=== PATIENT | female | born 1945 | race African-American/Black ===

== ENCOUNTER 2017-02-05 10:08 | Day surgery (SDC) | payer MEDICARE, BC ==
[~2017-02-05] VITALS: Ht 160 cm; Wt 91.6 kg
[~2017-02-05 10:08] MED LIST: ADVIL200 MG PO; ALEVE220 MG PO; AMITRIPTYLIN50 MG PO; AUGMENTIN875TAB OR; AVELOX400 MG PO; CARDIZEM CD240 MG OR; CENTRUM OR; CEPHALEXIN500 MG PO; CIPRO XR500 MG PO; CIPRO500 MG OR; CIPRO500 MG PO; CIPROFLOXACN500 MG PO; COZAAR100 MG PO; DARVOCET-N 100100 MG OR; DIFLUCAN150 MG OR; DILAUDID 2MG2 MG/TA1 OR; DILAUDID 2MG2 MG/TAB OR; ELAVIL; ELAVIL25 MG PO; ESCITALOPRAM OX10 MG PO; GABITRIL2 MG OR; GARLIQUE400 MG PO; KEFLEX500 M1 PO; LOSARTAN/HCT1 TA2 PO; LYRICA75 MG OR; MACROBID100 MG OR; MACRODANTIN100 MG PO; MELOXICAM15 MG PO; MELOXICAM7.5 MG PO; METRONIDAZOL500 MG PO; MOTRIN800 MG PO; NASONEX50 MCG/AC NAB; NEURONTIN300 MG PO; NEXIUM20 M1 OR; NEXIUM40 MG PO; NITROFURANTN100 M2 OR; NITROFURANTOIN100 MG PO; NORVASC2.5 MG PO; NYSTATIN TOP; NYSTATIN100000 M3 TOP; OMEGA 31000 MG PO; OMNICEF300 MG OR; OXYCODONE HCL5 MG PO; PERCOCET 5/325M1 TAB PO; POTASSIUM CHLO20 ME1 PO; PRILOSEC20 MG/CAP PO; PYRIDIUM200 MG PO; ULTRAM50 MG PO; VANTIN200 M1 PO; VERAPAMIL180 M2 PO; ZOFRAN ODT4 MG OR; ZYLOPRIM300 MG PO; ZYVOX600 MG PO
[2017-02-05] MEDS ORDERED: ELAVIL50 MG PO (10:54)
[2017-02-05 13:45] VITALS: BP 146/66
== END 2017-02-05 13:42 | disposition home or self-care (01) ==
LOC: ORM 10:08
PROVIDERS: ATTEND Urology
PROC: 0TP98DZ Removal of Intraluminal Device from Ureter, Via Natural or Artificial Opening Endoscopic (ICD-10-PCS; principal; 2017-02-05)
DX: Z46.6 Encounter for fitting and adjustment of urinary device (principal); I10 Essential (primary) hypertension; Z87.442 Personal history of urinary calculi

== ENCOUNTER 2017-03-02 23:27 | Inpatient (IN) | payer MEDICARE, BC ==
[~2017-03-02] VITALS: Ht 160 cm; Wt 99.5 kg
[~2017-03-02 23:27] MED LIST changes: +ELAVIL50 MG PO
[2017-03-03] MEDS ORDERED: UNK BP MED (00:30)
[2017-03-03 04:04] LABS: ALBUMIN 3.8 g/dL (3.2-5.0); ALKALINE PHOSPHATASE 89 u/l (38-126); ANION GAP 15 (6-22 (CALC)); BILIRUBIN, TOTAL 0.7 mg/dL (0.0-1.4); BUN 12 mg/dL (8-23); BUN/CREATININE RATIO 14 (12-20 (CALC)); CALCIUM 10.5 mg/dL (8.4-10.2); CARBON DIOXIDE 24 mmol/l (22-30); CHLORIDE 104 mmol/l (95-108); CREATININE 0.9 mg/dL (0.5-1.0); GFR > 60 ML/MIN (>=60 (CALC)); GFR FOR AFR.AMER. > 60 ML/MIN (>=60 (CALC)); GLUCOSE 131 mg/dL (82-115); POTASSIUM 4.4 mmol/l (3.5-5.1); SGOT/AST 16 u/l (9-36); SGPT/ALT 24 u/l (11-66); SODIUM 139 mmol/l (137-146); TOTAL PROTEIN 7.2 g/dL (6.3-8.2)
[2017-03-03 04:09] LABS: HEMATOCRIT 40.3 % (37.0-47.0); HEMOGLOBIN 12.9 g/dl (12.0-16.0); IMMATURE GRANULOCYTES 0.4 % (0.0-1.0); MEAN CELL VOLUME 85.6 fL CALC (80.0-100.0); MEAN CORPUSCULAR HGB 27.4 pG CALC (26.0-32.0); NEUT# 13.39 thou/uL (2.00-7.15); RED BLOOD COUNT 4.71 mill/uL (4.20-5.60); RED CELL DISTRI WIDTH 17.3 % (11.5-15.5)
[2017-03-03 08:11] LABS: URINE BILIRUBIN - DIPSTICK NEGATIVE (NEGATIVE); URINE BLOOD DIPSTICK MODERATE (NEGATIVE); URINE CLARITY TURBID; URINE COLOR YELLOW; URINE GLUCOSE - DIPSTICK NEGATIVE (NEGATIVE); URINE KETONE NEGATIVE (NEGATIVE); URINE LEUK ESTERASE LARGE (Negative); URINE NITRITE - DIPSTICK NEGATIVE (Negative); URINE PROTEIN - DIPSTICK NEGATIVE (NEG-TRACE); URINE UROBILINOGEN - DIPSTICK 0.2 E.U./dL (0.2)
[2017-03-03 08:20] LABS: URINE BACTERIA MODERATE hpf; URINE SQUAMOUS EPITHELIAL CELL FEW EPI/hpf (0-FEW); URINE WBC >100 WBC/hpf (0-5)
[2017-03-03 11:15] VITALS: BP 143/84
[2017-03-03 16:00] VITALS: BP 180/80
[2017-03-03 17:28] VITALS: BP 198/90
[2017-03-03 19:05] VITALS: BP 133/72
[2017-03-03 19:50] VITALS: BP 139/70
[2017-03-04] VITALS (13 sets, daily range): BP systolic 104–168; BP diastolic 36–82
[2017-03-04 04:28] LABS: HEMATOCRIT 34.9 % (37.0-47.0); HEMOGLOBIN 11.2 g/dl (12.0-16.0); IMMATURE GRANULOCYTES 0.6 % (0.0-1.0); MEAN CELL VOLUME 85.5 fL CALC (80.0-100.0); MEAN CORPUSCULAR HGB 27.5 pG CALC (26.0-32.0); MEAN CORPUSCULAR HGB CONC 32.1 g/L CALC (32.0-36.0); NEUT# 7.11 thou/uL (2.00-7.15); RED BLOOD COUNT 4.08 mill/uL (4.20-5.60); RED CELL DISTRI WIDTH 17.4 % (11.5-15.5)
[2017-03-04 04:43] LABS: ANION GAP 13 (6-22 (CALC)); BUN 15 mg/dL (8-23); BUN/CREATININE RATIO 15 (12-20 (CALC)); CARBON DIOXIDE 26 mmol/l (22-30); CHLORIDE 107 mmol/l (95-108); GFR 55 ML/MIN (>=60 (CALC)); GFR FOR AFR.AMER. > 60 ML/MIN (>=60 (CALC)); GLUCOSE 113 mg/dL (82-115); POTASSIUM 4.2 mmol/l (3.5-5.1); SODIUM 141 mmol/l (137-146)
[2017-03-05 04:25] VITALS: BP 135/75
[2017-03-05 06:01] LABS: HEMATOCRIT 35.9 % (37.0-47.0); HEMOGLOBIN 11.2 g/dl (12.0-16.0); IMMATURE GRANULOCYTES 0.5 % (0.0-1.0); MEAN CELL VOLUME 86.7 fL CALC (80.0-100.0); MEAN CORPUSCULAR HGB 27.1 pG CALC (26.0-32.0); MEAN CORPUSCULAR HGB CONC 31.2 g/L CALC (32.0-36.0); NEUT# 4.99 thou/uL (2.00-7.15); RED BLOOD COUNT 4.14 mill/uL (4.20-5.60); RED CELL DISTRI WIDTH 17.5 % (11.5-15.5)
[2017-03-05 06:21] LABS: ANION GAP 13 (6-22 (CALC)); BUN 12 mg/dL (8-23); BUN/CREATININE RATIO 14 (12-20 (CALC)); CALCIUM 9.8 mg/dL (8.4-10.2); CARBON DIOXIDE 24 mmol/l (22-30); CHLORIDE 109 mmol/l (95-108); CREATININE 0.9 mg/dL (0.5-1.0); GFR > 60 ML/MIN (>=60 (CALC)); GFR FOR AFR.AMER. > 60 ML/MIN (>=60 (CALC)); GLUCOSE 88 mg/dL (82-115); SODIUM 142 mmol/l (137-146)
[2017-03-05 08:03] VITALS: BP 127/83
[2017-03-05 10:57] VITALS: BP 119/70
[2017-03-05] MEDS ORDERED: ZYVOX600 MG PO (12:12)
[2017-03-05] MEDS ORDERED: TAMSULOSIN HCL0.4 MG PO (12:12)
[2017-03-05] MEDS ORDERED: PYRIDIUM200 MG PO (12:13)
== END 2017-03-05 13:24 | disposition home or self-care (01) | DRG 872 ==
LOC: ENPENDDIS → ED 23:27 → ED-I 23:59 → ED 23:59 → ED-I 03-03 06:10 → ED 03-03 10:00 → MS2 03-03 10:01
PROVIDERS: Emergency Medicine; ADMIT Internal Medicine; ATTEND Internal Medicine
PROC: 0T788DZ Dilation of Bilateral Ureters with Intraluminal Device, Via Natural or Artificial Opening Endoscopic (ICD-10-PCS; principal; 2017-03-04)
PROC: BT141ZZ Fluoroscopy of Kidneys, Ureters and Bladder using Low Osmolar Contrast (ICD-10-PCS; 2017-03-04)
DX: A41.9 Sepsis, unspecified organism (principal); N82.4 Other female intestinal-genital tract fistulae; I10 Essential (primary) hypertension; N13.6 Pyonephrosis; G47.33 Obstructive sleep apnea (adult) (pediatric); M19.90 Unspecified osteoarthritis, unspecified site; F32.9 Major depressive disorder, single episode, unspecified; N20.0 Calculus of kidney; B95.2 Enterococcus as the cause of diseases classified elsewhere; K21.9 Gastro-esophageal reflux disease without esophagitis; E66.9 Obesity, unspecified; R73.03 Prediabetes; Z68.35 Body mass index [BMI] 35.0-35.9, adult; Z16.21 Resistance to vancomycin; Z90.49 Acquired absence of other specified parts of digestive tract; Z87.442 Personal history of urinary calculi; Z87.440 Personal history of urinary (tract) infections; E83.52 Hypercalcemia; E21.0 Primary hyperparathyroidism
CPT/HCPCS: J0692; J1956; J2020; Q9967

== ENCOUNTER 2017-04-01 11:17 | Inpatient (IN) | payer MEDICARE, BC ==
[2017-04-01] VITALS (7 sets, daily range): BP systolic 132–158; BP diastolic 54–84
[~2017-04-01] VITALS: Ht 160 cm; Wt 101.0 kg
[~2017-04-01 11:17] MED LIST changes: +TAMSULOSIN HCL0.4 MG PO; +UNK BP MED
[2017-04-02 00:11] LABS: URINE BILIRUBIN - DIPSTICK NEGATIVE (NEGATIVE); URINE BLOOD DIPSTICK LARGE (NEGATIVE); URINE CLARITY TURBID; URINE COLOR RED; URINE GLUCOSE - DIPSTICK NEGATIVE (NEGATIVE); URINE KETONE NEGATIVE (NEGATIVE); URINE LEUK ESTERASE LARGE (Negative); URINE NITRITE - DIPSTICK NEGATIVE (Negative); URINE PROTEIN - DIPSTICK 30 mg/dL (NEG-TRACE); URINE SPECIFIC GRAVITY 1.015; URINE UROBILINOGEN - DIPSTICK 0.2 E.U./dL (0.2)
[2017-04-02 00:15] VITALS: BP 130/77; BP 152/84
[2017-04-02 00:15] LABS: URINE BACTERIA FEW hpf; URINE MUCUS MANY hpf (NONE-FEW); URINE RBC >100 RBC/hpf (0-5); URINE SQUAMOUS EPITHELIAL CELL FEW EPI/hpf (0-FEW); URINE WBC 50-100 WBC/hpf (0-5)
[2017-04-02 04:15] VITALS: BP 165/89
[2017-04-02 06:05] LABS: HEMATOCRIT 35.3 % (37.0-47.0); IMMATURE GRANULOCYTES 0.3 % (0.0-1.0); MEAN CELL VOLUME 87.4 fL CALC (80.0-100.0); MEAN CORPUSCULAR HGB 27.2 pG CALC (26.0-32.0); MEAN CORPUSCULAR HGB CONC 31.2 g/L CALC (32.0-36.0); NEUT# 5.81 thou/uL (2.00-7.15); RED BLOOD COUNT 4.04 mill/uL (4.20-5.60); RED CELL DISTRI WIDTH 18.1 % (11.5-15.5)
[2017-04-02 06:28] LABS: ANION GAP 14 (6-22 (CALC)); BUN 12 mg/dL (8-23); BUN/CREATININE RATIO 13 (12-20 (CALC)); CALCIUM 10.1 mg/dL (8.4-10.2); CARBON DIOXIDE 27 mmol/l (22-30); CHLORIDE 108 mmol/l (95-108); CREATININE 0.9 mg/dL (0.5-1.0); GFR > 60 ML/MIN (>=60 (CALC)); GFR FOR AFR.AMER. > 60 ML/MIN (>=60 (CALC)); GLUCOSE 113 mg/dL (82-115); POTASSIUM 3.7 mmol/l (3.5-5.1); SODIUM 145 mmol/l (137-146)
[2017-04-02 08:28] VITALS: BP 160/81
[2017-04-02 12:55] VITALS: BP 154/80
[2017-04-02 16:00] VITALS: BP 147/85
[2017-04-02 20:00] VITALS: BP 170/94
[2017-04-03 04:22] VITALS: BP 150/84
[2017-04-03 07:48] VITALS: BP 180/90
[2017-04-03] MEDS ORDERED: VANTIN200 M1 PO (13:03)
[2017-04-03] MEDS ORDERED: PYRIDIUM200 MG PO (13:33)
== END 2017-04-03 14:34 | disposition home or self-care (01) | DRG 669 ==
LOC: ENPENDDIS → ORM 11:17 → MS2 16:49
PROVIDERS: Internal Medicine; ADMIT Urology; ATTEND Urology
PROC: 0TBB8ZX Excision of Bladder, Via Natural or Artificial Opening Endoscopic, Diagnostic (ICD-10-PCS; principal; 2017-04-01)
PROC: 3E1K88Z Irrigation of Genitourinary Tract using Irrigating Substance, Via Natural or Artificial Opening Endoscopic (ICD-10-PCS; 2017-04-01)
PROC: BT00ZZZ Plain Radiography of Bladder (ICD-10-PCS; 2017-04-01)
PROC: BT14ZZZ Fluoroscopy of Kidneys, Ureters and Bladder (ICD-10-PCS; 2017-04-01)
DX: N32.1 Vesicointestinal fistula (principal); N13.6 Pyonephrosis; I10 Essential (primary) hypertension; G47.33 Obstructive sleep apnea (adult) (pediatric); F32.9 Major depressive disorder, single episode, unspecified; E21.3 Hyperparathyroidism, unspecified; Z87.440 Personal history of urinary (tract) infections; Z87.442 Personal history of urinary calculi; B96.20 Unspecified Escherichia coli [E. coli] as the cause of diseases classified elsewhere; Z90.49 Acquired absence of other specified parts of digestive tract; K21.9 Gastro-esophageal reflux disease without esophagitis; B96.4 Proteus (mirabilis) (morganii) as the cause of diseases classified elsewhere; Z01.818 Encounter for other preprocedural examination
CPT/HCPCS: J2710; Q9967

== ENCOUNTER 2017-05-04 15:09 | Emergency (ER) | payer MEDICARE, BC ==
[~2017-05-04] VITALS: Ht 160 cm; Wt 110.0 kg
[2017-05-04] MEDS ORDERED: NEXIUM40 M1 PO (17:20)
[2017-05-04] MEDS ORDERED: DILAUDID 2MG2 MG/TA1 PO (17:20)
[2017-05-04] MEDS ORDERED: COLACE100 MG PO (17:21)
[2017-05-04] MEDS ORDERED: POLYETHYLENE GLYCO2 PO (17:22)
[2017-05-04] MEDS ORDERED: LEXAPRO10 MG PO (17:23)
[2017-05-04 17:40] VITALS: BP 132/67
== END 2017-05-04 17:40 | disposition home or self-care (01) ==
LOC: ED 15:09
DX: M17.11 Unilateral primary osteoarthritis, right knee (principal); I10 Essential (primary) hypertension; G62.9 Polyneuropathy, unspecified; K21.9 Gastro-esophageal reflux disease without esophagitis; G47.30 Sleep apnea, unspecified; E66.9 Obesity, unspecified; Z98.890 Other specified postprocedural states; Z91.81 History of falling

== ENCOUNTER 2017-05-12 09:09 | Inpatient (IN) | payer MEDICARE, BC ==
[~2017-05-12] VITALS: Ht 160 cm; Wt 95.0 kg
[~2017-05-12 09:09] MED LIST changes: +COLACE100 MG PO; +DILAUDID 2MG2 MG/TA1 PO; +LEXAPRO10 MG PO; +NEXIUM40 M1 PO; +POLYETHYLENE GLYCO2 PO
--- NOTE | 2017-05-12 09:23 | NUR ---
EMS TO ER ROOM 9, TO BED
[2017-05-12 09:35] LABS: HEMATOCRIT 37.9 % (37.0-47.0); IMMATURE GRANULOCYTES 0.4 % (0.0-1.0); MEAN CELL VOLUME 83.5 fL CALC (80.0-100.0); MEAN CORPUSCULAR HGB 26.4 pG CALC (26.0-32.0); MEAN CORPUSCULAR HGB CONC 31.7 g/L CALC (32.0-36.0); NEUT# 7.17 thou/uL (2.00-7.15); RED BLOOD COUNT 4.54 mill/uL (4.20-5.60); RED CELL DISTRI WIDTH 18.3 % (11.5-15.5)
--- NOTE | 2017-05-12 09:44 | NUR ---
PT TO XRAY IN STABLE CONDITION. DENIES DIZZINESS AT THIS TIME. STATES USUALLY FEELS DIZZY BEFORE SYNCOPAL EPISODE. PT WITH HEALTHY IV SITE TO LFA. RESP ARE EQUAL AND NONLABORED
[2017-05-12 09:50] LABS: ALKALINE PHOSPHATASE 92 u/l (38-126); ANION GAP 16 (6-22 (CALC)); BILIRUBIN, TOTAL 0.5 mg/dL (0.0-1.4); BUN 10 mg/dL (8-23); BUN/CREATININE RATIO 10 (12-20 (CALC)); CALCIUM 10.9 mg/dL (8.4-10.2); CARBON DIOXIDE 25 mmol/l (22-30); CHLORIDE 106 mmol/l (95-108); GFR 55 ML/MIN (>=60 (CALC)); GFR FOR AFR.AMER. > 60 ML/MIN (>=60 (CALC)); GLUCOSE 127 mg/dL (82-115); POTASSIUM 3.2 mmol/l (3.5-5.1); SGOT/AST 20 u/l (9-36); SGPT/ALT 19 u/l (11-66); SODIUM 144 mmol/l (137-146); TOTAL PROTEIN 8.7 g/dL (6.3-8.2)
[2017-05-12 10:02] LABS: MYOGLOBIN 56 ng/mL (0 - 62)
--- NOTE | 2017-05-12 10:27 | NUR ---
PT TOLERATED WET TO DRY DRESSING WELL. GIVEN PAIN MED FOR REPORTS OF HEADACHE. AWAITING TEST RESULTS AT THIS TIME.
--- NOTE | 2017-05-12 11:55 | NUR ---
PT REPOSITIONED IN BED FOR COMFORT. STATES NO COMPLINTS AT THIS TIME.
[2017-05-12 12:00] LABS: URINE BILIRUBIN - DIPSTICK NEGATIVE (NEGATIVE); URINE BLOOD DIPSTICK LARGE (NEGATIVE); URINE COLOR YELLOW; URINE GLUCOSE - DIPSTICK NEGATIVE (NEGATIVE); URINE KETONE NEGATIVE (NEGATIVE); URINE PH 6.5 (4.5-8.0); URINE PROTEIN - DIPSTICK 30 mg/dL (NEG-TRACE); URINE UROBILINOGEN - DIPSTICK 0.2 E.U./dL (0.2)
[2017-05-12 12:06] LABS: URINE CLARITY CLOUDY; URINE LEUK ESTERASE LARGE (NEGATIVE); URINE NITRITE - DIPSTICK POSITIVE (Negative)
[2017-05-12 12:08] LABS: URINE BACTERIA MODERATE hpf; URINE EPITHELIAL CELLS MANY EPI/hpf (0-FEW); URINE WBC 20-50 WBC/hpf (0-5)
--- NOTE | 2017-05-12 12:45 | NUR ---
PT REFUSING ORTHOBP AT THIS TIME.
--- NOTE | 2017-05-12 13:03 | NUR ---
SBAR PRINTED TO [id number] AT [id number].
--- NOTE | 2017-05-12 13:10 | NUR ---
ATTEMPTED TO CALL REPOR. MS NURSE WILL CALL BACK WHEN SHE IS READY
--- NOTE | 2017-05-12 13:30 | NUR ---
Admission Note Report Given to: SIL HERNANDEZ Transported by: Wheelchair X Stretcher Transported with: X Nurse Transporter X Patent IV O2 X Broach Setter PT LEFT ER IN STABLE CONDITION
--- NOTE | 2017-05-12 13:35 | NUR ---
REPORT RECEIVED FROM BANDAR IN ED, PT ARRIVED ON UNIT VIA STRETCHER AND TRANSFERRED TO BED WITH MAX ASSIST, REFUSED TO BE WEIGHED ON SCALE STATING FEAR EVEN THOUGH ASSURED WILL HAVE ASSIST OF 3 STAFF MEMBERS. ALERT AND ORIENTED, ORIENTED TO ROOM AND CALL BERRY, TELE MONITOR IN PLACE, REFUSED ANAND STOCKINGS. WILL CONTINUE TO MONITOR.
[2017-05-12 13:44] VITALS: BP 101/51
--- NOTE | 2017-05-12 14:54 | NUR ---
BANDAR IN ED REPORTED DR PARMAR NEED SPECIMEN FROM STRAIGHT CATHETERIZATION BUT PT HAD JUST URINATED IN BP THEREFORE SPECIMEN WAS NOT OBTAINED AND ROCEPHIN ORDERED IN ED NOT GIVEN THIS SPECIMEN NEEDED BEFORE ABT GIVEN.
--- NOTE | 2017-05-12 15:58 | NUR ---
ASSISTED TO BSC AND BACK TO BED, REQUIRES SUPERVISION WITH MINIMAL ASSIST, NO NEW COMPLAIN, CALL BERRY IN REACH.
[2017-05-12 19:30] VITALS: BP 133/71
--- NOTE | 2017-05-12 22:40 | NUR ---
PT RESTING IN SEMI FOWLERS POSITION;PT COMPLAINS OF ABDOMINAL PAIN RATING 8/10 ON THE PAIN SCALE AND REQUESTS PRN PAIN MEDICATION;PT MEDICATED WITH PRN DILAUDID AT THIS TIME;ASSESSMENT COMPLETED;TELE MONITOR IN PLACE;IV SITE TO LFA FLUSHED AND PATENT;DRESSING TO LOWER ABDOMEN CDI;PT DENIES ANY NEEDS AT THIS TIME;SAFETY PRECAUTIONS REINFORCED;COMMODE AT BEDSIDE;BED IN LOWEST POSITION WITH CALL LIGHT WITHIN REACH;WILL CONTINUE TO MONITOR
[2017-05-13] VITALS (7 sets, daily range): BP systolic 92–136; BP diastolic 41–78
--- NOTE | 2017-05-13 00:20 | NUR ---
PT RESTING IN SEMI FOWLERS POSITION;PT STATES THAT PAIN IS "BETTER";PT DENIES ANY NEEDS AT THIS TIME;PT EDUCATED TO CALL FOR ASSISTANCE IF NEEDED;BED IN LOWEST POSITION WITH CALL LIGHT IN REACH;WILL CONTINUE TO MONITOR
--- NOTE | 2017-05-13 03:58 | NUR ---
PT RESTING IN BED;PT COMPLAINS OF ABDOMINAL AND RIGHT KNEE PAIN RATING 8/10 ON THE PAIN SCALE AND REQUESTS PRN PAIN MEDICATION;PT MEDICATED ACCORDINGLY PER JAN;TELE MONITOR IN PLACE;PT DENIES ANY OTHER NEEDS AT THIS TIME;COMMODE AT BEDSIDE;BED IN LOWEST POSITION WITH CALL LIGHT IN REACH;WILL CONTINUE TO MONITOR
[2017-05-13 06:12] LABS: HEMATOCRIT 31.9 % (37.0-47.0); HEMOGLOBIN 9.9 g/dl (12.0-16.0); IMMATURE GRANULOCYTES 0.5 % (0.0-1.0); MEAN CELL VOLUME 83.5 fL CALC (80.0-100.0); MEAN CORPUSCULAR HGB 25.9 pG CALC (26.0-32.0); NEUT# 6.11 thou/uL (2.00-7.15); RED BLOOD COUNT 3.82 mill/uL (4.20-5.60); RED CELL DISTRI WIDTH 18.1 % (11.5-15.5)
[2017-05-13 06:33] LABS: ANION GAP 10 (6-22 (CALC)); BUN 10 mg/dL (8-23); BUN/CREATININE RATIO 10 (12-20 (CALC)); CALCIUM 10.2 mg/dL (8.4-10.2); CARBON DIOXIDE 26 mmol/l (22-30); CHLORIDE 110 mmol/l (95-108); CREATININE 0.9 mg/dL (0.5-1.0); GFR > 60 ML/MIN (>=60 (CALC)); GFR FOR AFR.AMER. > 60 ML/MIN (>=60 (CALC)); GLUCOSE 89 mg/dL (82-115); POTASSIUM 3.4 mmol/l (3.5-5.1); SODIUM 142 mmol/l (137-146)
--- NOTE | 2017-05-13 07:00 | NUR ---
RECEIVED BEDSIDE REPORT FROM ROBBIE SMITH. RESTING IN SEMI FOWLERS WITH EYES CLOSED, AWAKENS EASILY. RESPS EVEN AND UNLABORED ON ROOM AIR, TELE MONITOR IN PLACE. DRESSING TO LOWER ABD CDI. VOICES NO C/O AT THIS TIME. PLAN OF CARE DISCUSSED. SAFETY PRECAUTIONS REINFORCED. BED IN LOWEST POSITION WITH WHEELS LOCKED. CALL LIGHT WITHIN REACH. ENCOURAGED PT TO CALL FOR ANY NEEDS.
--- NOTE | 2017-05-13 09:35 | NUR ---
DR JULIO IN WITH PT, AWAITING NEW ORDERS.
--- NOTE | 2017-05-13 11:30 | NUR ---
REPOSITIONED IN BED FOR LUNCH. RESPS EVEN AND UNLABORED ON ROOM AIR, TELE MONITOR IN PLACE. MEDICATED WITH PERCOCET FOR C/O 10/10 LOWER ABD PAIN. PO FLUIDS OFFERED. CALL LIGHT WITHIN REACH. WILL CONTINUE TO MONITOR.
--- NOTE | 2017-05-13 12:15 | NUR ---
DR BENITO IN TO SEE PT, NEW ORDERS RECEIVED.
--- NOTE | 2017-05-13 12:45 | NUR ---
MEDICATED WITH ZOFRAN 4MG IVP FOR C/O NAUSEA. MIRALAX PO GIVEN FOR CONSTIPATION.
--- NOTE | 2017-05-13 14:07 | NUR ---
PHYSICAL THERAPY IN WITH PT.
--- NOTE | 2017-05-13 17:06 | NUR ---
DRESSING TO LOWER ABD REMOVED. DRESSING SATURATED WITH YELLOW DRAINAGE WITH STRONG ODOR. AREA CLEANSED WITH SOAP AND WATER. PATTED DRY. WOUND PACKED WITH MOIST 4X4'S, COVERED WITH DRY ABD PAD, SECURED WITH PAPER TAPE. PT TOLERATED WELL. PITO CARE PROVIDED BY KYLE FELICIANO. CALL HARRISON DUGAN. WILL CONTINUE TO MONITOR.
--- NOTE | 2017-05-13 18:30 | NUR ---
MEDICATED WITH PERCOCET PO FOR C/O 10/10 LOWER ABD PAIN. VISITOR AT BEDSIDE. CALL LIGHT WITHIN REACH.
--- NOTE | 2017-05-13 20:00 | NUR ---
PATIENT RESTING IN BED AT THIS TIME. PATIENT C/O SEVERE LLQ ABD PAIN-PATIENT STATES NO RELIEF FROM PAIN MED EARLIER-PATIENT HAD PERCOCET WITH LITTLE OR NO RELIEF. PATIENT MEDICATED WITH DILAUDID 2MG PO FOR PAIN. PATIENT WITH LLQ ABD DRESSING CDI AT THIS TIME. HEP LOCK TO LEFT FOREARM-SITE APPEARS HEALTHY AT THIS TIME. SAFETY PRECAUTIONS REINFORCED. CALL LIGHT IN REACH. WILL CONT TO MONITOR.
[2017-05-14] VITALS (10 sets, daily range): BP systolic 93–145; BP diastolic 56–75
--- NOTE | 2017-05-14 01:00 | NUR ---
PATIENT RESTING IN BED-C/O LLQ ABD PAIN-MEDICATED WITH DILAUDID 2MG PO ORDERED. CALL LIGHT IN REACH. WILL CONT TO MONITOR.
--- NOTE | 2017-05-14 04:09 | NUR ---
PATIENT APPEARS SLEEPING AT THIS TIME WITH EYES CLOSED. CALL LIGHT IN REACH. WILL CONT TO MONITOR.
--- NOTE | 2017-05-14 06:25 | NUR ---
PATIENT RESTING IN BED-AWAKE AND ALERT. C/O LLQ ABD PAIN-8/10 ON PAIN SCALE. PATIENT MEDICATED WITH DILAUDID 2MG PO ORDERED FOR PAIN. CALL LIGHT IN REACH. WILL CONT TO MONITOR.
[2017-05-14 06:43] LABS: ANION GAP 11 (6-22 (CALC)); BUN 12 mg/dL (8-23); BUN/CREATININE RATIO 12 (12-20 (CALC)); CALCIUM 9.9 mg/dL (8.4-10.2); CARBON DIOXIDE 26 mmol/l (22-30); CHLORIDE 108 mmol/l (95-108); GFR 55 ML/MIN (>=60 (CALC)); GFR FOR AFR.AMER. > 60 ML/MIN (>=60 (CALC)); GLUCOSE 93 mg/dL (82-115); POTASSIUM 3.9 mmol/l (3.5-5.1); SODIUM 141 mmol/l (137-146)
--- NOTE | 2017-05-14 07:00 | NUR ---
RECEIVED BEDSIDE REPORT FROM RAVINDRA HERNANDEZ. RESTING IN BED WITH EYES CLOSED, AWAKENS EASILY. RESPS EVEN AND UNLABORED ON ROOM AIR, TELE MONITOR IN PLACE. REPORTS PAIN LEVEL 05/18. WILL MEDICATE PER JAN. PLAN OF CARE DISCUSSED. SAFETY PRECAUTIONS REINFORCED. BED IN LOWEST POSITION WITH WHEELS LOCKED. CALL LIGHT WITHIN REACH. ENCOURAGED PT TO CALL FOR ANY NEEDS.
[2017-05-14 07:15] LABS: HEMATOCRIT 30.6 % (37.0-47.0); HEMOGLOBIN 9.4 g/dl (12.0-16.0); IMMATURE GRANULOCYTES 0.2 % (0.0-1.0); MEAN CELL VOLUME 85.7 fL CALC (80.0-100.0); MEAN CORPUSCULAR HGB 26.3 pG CALC (26.0-32.0); MEAN CORPUSCULAR HGB CONC 30.7 g/L CALC (32.0-36.0); NEUT# 5.37 thou/uL (2.00-7.15); RED BLOOD COUNT 3.57 mill/uL (4.20-5.60); RED CELL DISTRI WIDTH 18.2 % (11.5-15.5)
--- NOTE | 2017-05-14 07:30 | NUR ---
RECEIVED PHONE CALL FROM STACEY HERNANDEZ IN OR. DR CHU WILL BE DOING PROCEDURE IN OR THIS AM. QUESTIONS THE LAST TIME PT HAS HAD PO?
--- NOTE | 2017-05-14 08:00 | NUR ---
TO OR VIA STRETCHER ACCOMPANIED BY JORDY HERNANDEZ.
--- NOTE | 2017-05-14 10:45 | NUR ---
FROM OR VIA STRETCHER ACCOMPANIED BY AUBREY RN. TRANSFERRED TO BED WITH STAND BY ASSIST. DRESSING TO LOWER ABD CDI. SCDS TO BILAT LOWER EXTREMITIES. #22LFA INFUSING WITHOUT DIFFICULTY, SITE APPEARS HEALTHY. ORIENTED TO ROOM AND CALL SYSTEM. BED IN LOWEST POSITTION WITH WHEELS LOCKED. SAFETY PRECAUTIONS REINFORCED. CALL LIGHT WITHIN REACH. WILL CONTINUE TO MONITOR.
[2017-05-14] MEDS ORDERED: FLORASTOR250 M1 PO (14:02)
[2017-05-14] MEDS ORDERED: CIPROFLOXACN500 MG PO (14:02)
[2017-05-14] MEDS ORDERED: DILAUDID 2MG2 MG/TA1 PO (14:02)
--- NOTE | 2017-05-14 18:09 | NUR ---
Discharge instructions given. Patient verbalizes understanding of same. Discharged in stable condition via Medical Transport to [facility] with *Other. All belongings sent with pt. TO [facility] VIA MEDICAL TRANSPORT
--- NOTE | 2017-05-14 18:21 | NUR ---
NURSE TO NURSE REPORT CALLED TO MEET SMITH AT [facility].
[2017-06-04] MEDS ORDERED: ELAVIL10 MG PO (10:58)
[2017-06-04] MEDS ORDERED: PROTONIX20 M1 PO (11:00)
== END 2017-05-14 18:04 | DRG 699 ==
LOC: ENPENDDIS → ED 09:09 → ED-I 12:10 → ED 13:00 → MS2 13:01
PROVIDERS: Emergency Medicine; Internal Medicine; ADMIT Internal Medicine; ATTEND Internal Medicine
PROC: 0TP98DZ Removal of Intraluminal Device from Ureter, Via Natural or Artificial Opening Endoscopic (ICD-10-PCS; principal; 2017-05-14)
PROC: 0T788DZ Dilation of Bilateral Ureters with Intraluminal Device, Via Natural or Artificial Opening Endoscopic (ICD-10-PCS; 2017-05-14)
PROC: BT141ZZ Fluoroscopy of Kidneys, Ureters and Bladder using Low Osmolar Contrast (ICD-10-PCS; 2017-05-14)
DX: T83.593A Infection and inflammatory reaction due to other urinary stents, initial encounter (principal); N13.6 Pyonephrosis; G62.9 Polyneuropathy, unspecified; I10 Essential (primary) hypertension; K21.9 Gastro-esophageal reflux disease without esophagitis; E66.9 Obesity, unspecified; M19.90 Unspecified osteoarthritis, unspecified site; M25.461 Effusion, right knee; D63.8 Anemia in other chronic diseases classified elsewhere; E87.6 Hypokalemia; T81.31XD Disruption of external operation (surgical) wound, not elsewhere classified, subsequent encounter; G47.33 Obstructive sleep apnea (adult) (pediatric); E21.3 Hyperparathyroidism, unspecified; F32.9 Major depressive disorder, single episode, unspecified; B96.5 Pseudomonas (aeruginosa) (mallei) (pseudomallei) as the cause of diseases classified elsewhere; Y83.1 Surgical operation with implant of artificial internal device as the cause of abnormal reaction of the patient, or of later complication, without mention of misadventure at the time of the procedure; Y83.6 Removal of other organ (partial) (total) as the cause of abnormal reaction of the patient, or of later complication, without mention of misadventure at the time of the procedure; Z90.49 Acquired absence of other specified parts of digestive tract; Z87.442 Personal history of urinary calculi; Z87.440 Personal history of urinary (tract) infections; Z68.37 Body mass index [BMI] 37.0-37.9, adult
CPT/HCPCS: G0378; J0692; Q9967

== ENCOUNTER 2017-05-20 17:08 | Emergency (ER) | payer MEDICARE, BC ==
[~2017-05-20] VITALS: Ht 160 cm; Wt 90.0 kg
[~2017-05-20 17:08] MED LIST changes: +FLORASTOR250 M1 PO
[2017-05-20 19:39] LABS: URINE BILIRUBIN - DIPSTICK NEGATIVE (NEGATIVE); URINE BLOOD DIPSTICK LARGE (NEGATIVE); URINE CLARITY SLIGHT CLOUDY; URINE COLOR YELLOW; URINE GLUCOSE - DIPSTICK NEGATIVE (NEGATIVE); URINE KETONE NEGATIVE (NEGATIVE); URINE NITRITE - DIPSTICK NEGATIVE (Negative); URINE PROTEIN - DIPSTICK 100 mg/dL (NEG-TRACE); URINE SPECIFIC GRAVITY 1.025; URINE UROBILINOGEN - DIPSTICK 0.2 E.U./dL (0.2)
[2017-05-20 19:40] LABS: URINE LEUK ESTERASE MODERATE (NEGATIVE)
[2017-05-20 19:48] LABS: URINE SQUAMOUS EPITHELIAL CELL FEW EPI/hpf (0-FEW); URINE WBC 50-100 WBC/hpf (0-5)
[2017-05-20 20:18] LABS: HEMATOCRIT 35.6 % (37.0-47.0); HEMOGLOBIN 10.9 g/dl (12.0-16.0); IMMATURE GRANULOCYTES 0.6 % (0.0-1.0); MEAN CELL VOLUME 84.8 fL CALC (80.0-100.0); MEAN CORPUSCULAR HGB CONC 30.6 g/L CALC (32.0-36.0); NEUT# 9.5 thou/uL (2.00-7.15); RED BLOOD COUNT 4.2 mill/uL (4.20-5.60)
[2017-05-20 20:31] LABS: ALKALINE PHOSPHATASE 93 u/l (38-126); AMYLASE 65 u/l (30-110); ANION GAP 11 (6-22 (CALC)); BUN 7 mg/dL (8-23); BUN/CREATININE RATIO 9 (12-20 (CALC)); CALCIUM 10.5 mg/dL (8.4-10.2); CARBON DIOXIDE 29 mmol/l (22-30); CHLORIDE 104 mmol/l (95-108); CREATININE 0.8 mg/dL (0.5-1.0); GFR > 60 ML/MIN (>=60 (CALC)); GFR FOR AFR.AMER. > 60 ML/MIN (>=60 (CALC)); GLUCOSE 140 mg/dL (82-115); LIPASE 61 u/l (23-300); POTASSIUM 4.9 mmol/l (3.5-5.1); SGOT/AST 52 u/l (9-36); SGPT/ALT 13 u/l (11-66); SODIUM 139 mmol/l (137-146); TOTAL PROTEIN 8.4 g/dL (6.3-8.2)
[2017-05-20 20:42] LABS: MYOGLOBIN 80 ng/mL (0 - 62)
[2017-05-20 22:45] VITALS: BP 146/92
== END 2017-05-20 22:50 | disposition home or self-care (01) ==
LOC: ED 17:08
PROVIDERS: Emergency Medicine
DX: G89.29 Other chronic pain (principal); R10.84 Generalized abdominal pain; N39.0 Urinary tract infection, site not specified; R11.0 Nausea; K59.00 Constipation, unspecified; Z98.0 Intestinal bypass and anastomosis status

== ENCOUNTER 2017-06-05 06:54 | Day surgery (SDC) | payer MEDICARE, BC ==
[~2017-06-05] VITALS: Ht 160 cm; Wt 90.7 kg
[~2017-06-05 06:54] MED LIST changes: +ELAVIL10 MG PO; +PROTONIX20 M1 PO
[2017-06-05] MEDS ORDERED: NORCO1 TA1 PO (11:53)
[2017-06-05] MEDS ORDERED: PYRIDIUM200 MG PO (11:53)
[2017-06-05] MEDS ORDERED: COLACE100 MG PO (11:53)
[2017-06-05] MEDS ORDERED: CIPROFLOXACN500 MG PO (11:53)
[2017-06-05 12:02] VITALS: BP 143/65
== END 2017-06-05 12:31 ==
LOC: ORM 06:54
PROVIDERS: ATTEND Urology
PROC: 0TC18ZZ Extirpation of Matter from Left Kidney, Via Natural or Artificial Opening Endoscopic (ICD-10-PCS; principal; 2017-06-05)
PROC: 0TC68ZZ Extirpation of Matter from Right Ureter, Via Natural or Artificial Opening Endoscopic (ICD-10-PCS; 2017-06-05)
PROC: 0TC78ZZ Extirpation of Matter from Left Ureter, Via Natural or Artificial Opening Endoscopic (ICD-10-PCS; 2017-06-05)
PROC: 0TC08ZZ Extirpation of Matter from Right Kidney, Via Natural or Artificial Opening Endoscopic (ICD-10-PCS; 2017-06-05)
PROC: 0T788DZ Dilation of Bilateral Ureters with Intraluminal Device, Via Natural or Artificial Opening Endoscopic (ICD-10-PCS; 2017-06-05)
PROC: BT14ZZZ Fluoroscopy of Kidneys, Ureters and Bladder (ICD-10-PCS; 2017-06-05)
DX: N13.2 Hydronephrosis with renal and ureteral calculous obstruction (principal); K21.9 Gastro-esophageal reflux disease without esophagitis; I10 Essential (primary) hypertension
CPT/HCPCS: Q9967

== ENCOUNTER 2017-07-02 06:00 | Day surgery (SDC) | payer MEDICARE, BC ==
[~2017-07-02] VITALS: Ht 160 cm; Wt 89.8 kg
[~2017-07-02 06:00] MED LIST changes: +NORCO1 TA1 PO
[2017-07-02 12:20] VITALS: BP 163/79
== END 2017-07-02 12:40 | disposition home or self-care (01) ==
LOC: ORM 06:00
PROVIDERS: ATTEND Urology
PROC: 0TP98DZ Removal of Intraluminal Device from Ureter, Via Natural or Artificial Opening Endoscopic (ICD-10-PCS; principal; 2017-07-02)
PROC: BT141ZZ Fluoroscopy of Kidneys, Ureters and Bladder using Low Osmolar Contrast (ICD-10-PCS; 2017-07-02)
PROC: 05HC33Z Insertion of Infusion Device into Left Basilic Vein, Percutaneous Approach (ICD-10-PCS; 2017-07-02)
PROC: B51NZZA Fluoroscopy of Left Upper Extremity Veins, Guidance (ICD-10-PCS; 2017-07-02)
DX: N13.5 Crossing vessel and stricture of ureter without hydronephrosis (principal); I10 Essential (primary) hypertension; K21.9 Gastro-esophageal reflux disease without esophagitis; Z87.442 Personal history of urinary calculi
CPT/HCPCS: Q9967

== ENCOUNTER → 2017-11-04 | Day surgery (SDC) | payer MEDICARE, BC ==
[~2017-11-04] VITALS: Ht 160 cm; Wt 90.7 kg
[~2017-11-04] MED LIST changes: +BACTRIM DS1 TAB PO; +BL IBUPROFEN200 MG PO; +METOPROL TAR25 M1 PO; +MONTELUKAST SOD10 MG PO; +NASONEX50 MCG/ACT NAB
[2017-11-04 12:44] VITALS: BP 138/68
== END ==
LOC: ORM 09:16
PROVIDERS: ATTEND Surgery
PROC: 0HQ7XZZ Repair Abdomen Skin, External Approach (ICD-10-PCS; principal; 2017-11-04)
DX: T81.89XA Other complications of procedures, not elsewhere classified, initial encounter (principal); M10.9 Gout, unspecified; F32.9 Major depressive disorder, single episode, unspecified; Y83.6 Removal of other organ (partial) (total) as the cause of abnormal reaction of the patient, or of later complication, without mention of misadventure at the time of the procedure

== ENCOUNTER 2018-08-13 14:58 | Emergency (ER) | payer OTHER, MEDICARE, BC ==
[~2018-08-13] VITALS: Ht 160 cm; Wt 90.0 kg
[2018-08-13] MEDS ORDERED: TESSALON PERLE100 MG PO (16:21)
[2018-08-13 16:30] VITALS: BP 148/75
== END 2018-08-13 16:30 | disposition home or self-care (01) | DRG 556 ==
LOC: ED 14:58
DX: M25.562 Pain in left knee (principal); B34.9 Viral infection, unspecified; I10 Essential (primary) hypertension; V49.40XA Driver injured in collision with unspecified motor vehicles in traffic accident, initial encounter; Z90.49 Acquired absence of other specified parts of digestive tract

== ENCOUNTER 2018-11-10 16:00 | Inpatient (IN) | payer OTHER, MEDICARE, BC ==
[~2018-11-10] VITALS: Ht 162.6 cm; Wt 90.7 kg
[~2018-11-10 16:00] MED LIST changes: +HYDROCHLOROTH12.5 M1 PO; +LOSARTAN POT50 MG PO; +TESSALON PERLE100 MG PO
[2018-11-22] VITALS (7 sets, daily range): BP systolic 113–178; BP diastolic 53–83
[2018-11-22 10:01] LABS: URINE BILIRUBIN - DIPSTICK NEGATIVE (NEGATIVE); URINE BLOOD DIPSTICK TRACE-INTACT (NEGATIVE); URINE COLOR YELLOW; URINE GLUCOSE - DIPSTICK NEGATIVE (NEGATIVE); URINE KETONE NEGATIVE (NEGATIVE); URINE LEUK ESTERASE MODERATE (Negative); URINE NITRITE - DIPSTICK POSITIVE (Negative); URINE PH 6.5 (4.5-8.0); URINE PROTEIN - DIPSTICK NEGATIVE (NEG-TRACE); URINE SPECIFIC GRAVITY 1.015
[2018-11-22 10:03] LABS: URINE CLARITY CLOUDY
[2018-11-22 10:04] LABS: URINE RBC 0-2 RBC/hpf (0-5)
[2018-11-22 10:05] LABS: URINE BACTERIA MODERATE hpf; URINE EPITHELIAL CELLS MODERATE EPI/hpf (0-FEW)
[2018-11-23 00:27] VITALS: BP 164/74
[2018-11-23 04:44] VITALS: BP 133/69
[2018-11-23 05:16] LABS: HEMATOCRIT 37.5 % (37.0-47.0); HEMOGLOBIN 12.2 g/dl (12.0-16.0); MEAN CELL VOLUME 90.4 fL CALC (80.0-100.0); MEAN CORPUSCULAR HGB 29.4 pG CALC (26.0-32.0); MEAN CORPUSCULAR HGB CONC 32.5 g/L CALC (32.0-36.0); RED BLOOD COUNT 4.15 mill/uL (4.20-5.60); RED CELL DISTRI WIDTH 15.8 % (11.5-15.5)
[2018-11-23 05:32] LABS: ANION GAP 11 (6-22 (CALC)); BUN 11 mg/dL (8-23); BUN/CREATININE RATIO 18 (12-20 (CALC)); CARBON DIOXIDE 26 mmol/l (22-30); CHLORIDE 108 mmol/l (95-108); CREATININE 0.6 mg/dL (0.5-1.0); GFR > 60 ML/MIN (>=60 (CALC)); GFR FOR AFR.AMER. > 60 ML/MIN (>=60 (CALC)); MAGNESIUM 1.7 mg/dL (1.6-2.3); POTASSIUM 3.8 mmol/l (3.5-5.1); SODIUM 140 mmol/l (137-146)
[2018-11-23 09:25] VITALS: BP 116/65
[2018-11-23 16:51] VITALS: BP 129/72
[2018-11-23 19:15] VITALS: BP 145/70
[2018-11-24] VITALS (8 sets, daily range): BP systolic 102–173; BP diastolic 42–73
[2018-11-24 05:42] LABS: HEMOGLOBIN 11.6 g/dl (12.0-16.0); IMMATURE GRANULOCYTES 0.9 % (0.0-5.0); MEAN CELL VOLUME 92.5 fL CALC (80.0-100.0); MEAN CORPUSCULAR HGB CONC 31.4 g/L CALC (32.0-36.0); NEUT# 8.89 thou/uL (2.00-7.15); RED CELL DISTRI WIDTH 15.8 % (11.5-15.5)
[2018-11-24 06:12] LABS: ALBUMIN 3.2 g/dL (3.2-5.0); ALKALINE PHOSPHATASE 75 u/l (38-126); AMYLASE < 30 u/l (30-110); ANION GAP 11 (6-22 (CALC)); BILIRUBIN, TOTAL 0.5 mg/dL (0.0-1.4); BUN 15 mg/dL (8-23); BUN/CREATININE RATIO 19 (12-20 (CALC)); CARBON DIOXIDE 28 mmol/l (22-30); CHLORIDE 105 mmol/l (95-108); CREATININE 0.8 mg/dL (0.5-1.0); GFR > 60 ML/MIN (>=60 (CALC)); GFR FOR AFR.AMER. > 60 ML/MIN (>=60 (CALC)); LIPASE 22 u/l (23-300); MAGNESIUM 1.8 mg/dL (1.6-2.3); SGOT/AST 18 u/l (9-36); SODIUM 140 mmol/l (137-146); TOTAL PROTEIN 5.9 g/dL (6.3-8.2)
[2018-11-25 04:15] VITALS: BP 126/59
[2018-11-25 05:57] LABS: URINE BILIRUBIN - DIPSTICK NEGATIVE (NEGATIVE); URINE BLOOD DIPSTICK TRACE-INTACT (NEGATIVE); URINE COLOR YELLOW; URINE GLUCOSE - DIPSTICK NEGATIVE (NEGATIVE); URINE KETONE NEGATIVE (NEGATIVE); URINE LEUK ESTERASE SMALL (Negative); URINE NITRITE - DIPSTICK NEGATIVE (Negative); URINE PROTEIN - DIPSTICK TRACE mg/dL (NEG-TRACE); URINE SPECIFIC GRAVITY 1.025; URINE UROBILINOGEN - DIPSTICK 0.2 E.U./dL (0.2)
[2018-11-25 06:04] LABS: URINE CLARITY TURBID
[2018-11-25 06:16] LABS: URINE BACTERIA MANY hpf; URINE SQUAMOUS EPITHELIAL CELL FEW EPI/hpf (0-FEW); URINE WBC 50-100 WBC/hpf (0-5)
[2018-11-25 07:36] LABS: HEMATOCRIT 32.2 % (37.0-47.0); HEMOGLOBIN 10.3 g/dl (12.0-16.0); IMMATURE GRANULOCYTES 0.7 % (0.0-5.0); MEAN CORPUSCULAR HGB 29.4 pG CALC (26.0-32.0); NEUT# 7.59 thou/uL (2.00-7.15); RED BLOOD COUNT 3.5 mill/uL (4.20-5.60); RED CELL DISTRI WIDTH 15.8 % (11.5-15.5)
[2018-11-25 08:07] LABS: ALBUMIN 3.1 g/dL (3.2-5.0); ALKALINE PHOSPHATASE 72 u/l (38-126); ANION GAP 10 (6-22 (CALC)); BILIRUBIN, TOTAL 0.6 mg/dL (0.0-1.4); BUN 16 mg/dL (8-23); BUN/CREATININE RATIO 22 (12-20 (CALC)); CARBON DIOXIDE 29 mmol/l (22-30); CHLORIDE 105 mmol/l (95-108); CREATININE 0.7 mg/dL (0.5-1.0); GFR > 60 ML/MIN (>=60 (CALC)); GFR FOR AFR.AMER. > 60 ML/MIN (>=60 (CALC)); MAGNESIUM 1.9 mg/dL (1.6-2.3); POTASSIUM 3.8 mmol/l (3.5-5.1); SGOT/AST 21 u/l (9-36); SODIUM 140 mmol/l (137-146)
[2018-11-25 09:07] VITALS: BP 99/65
[2018-11-25 15:36] VITALS: BP 152/87
== END 2018-11-25 16:45 | DRG 483 ==
LOC: MS2 11-22 09:00
PROVIDERS: Internal Medicine Nephrology; Nurse Practitioner Family; ADMIT Orthopaedic Surgery; ATTEND Internal Medicine
PROC: 0RRK00Z Replacement of Left Shoulder Joint with Reverse Ball and Socket Synthetic Substitute, Open Approach (ICD-10-PCS; principal; 2018-11-22)
PROC: 0LS40ZZ Reposition Left Upper Arm Tendon, Open Approach (ICD-10-PCS; 2018-11-22)
PROC: 3E0T3BZ Introduction of Anesthetic Agent into Peripheral Nerves and Plexi, Percutaneous Approach (ICD-10-PCS; 2018-11-22)
DX: M19.012 Primary osteoarthritis, left shoulder (principal); S46.012A Strain of muscle(s) and tendon(s) of the rotator cuff of left shoulder, initial encounter; S46.212A Strain of muscle, fascia and tendon of other parts of biceps, left arm, initial encounter; I10 Essential (primary) hypertension; G47.33 Obstructive sleep apnea (adult) (pediatric); E21.0 Primary hyperparathyroidism; E66.9 Obesity, unspecified; K21.9 Gastro-esophageal reflux disease without esophagitis; Z68.34 Body mass index [BMI] 34.0-34.9, adult; Z87.440 Personal history of urinary (tract) infections; Z87.442 Personal history of urinary calculi; V89.2XXA Person injured in unspecified motor-vehicle accident, traffic, initial encounter
CPT/HCPCS: J2710

== ENCOUNTER 2019-01-05 14:00 | Outpatient (RCR) | payer OTHER, MEDICARE, BC | END 2019-01-05 15:00 | disposition home or self-care (01) | DRG 561 | LOC: PT 14:00 | PROVIDERS: ATTEND Orthopaedic Surgery | DX: Z47.1 Aftercare following joint replacement surgery (principal); Z96.612 Presence of left artificial shoulder joint; M25.512 Pain in left shoulder ==

== ENCOUNTER → 2019-01-11 | Outpatient (REF) | payer OTHER, MEDICARE, BC | END | disposition home or self-care (01) | DRG 556 | LOC: DI 11:05 | PROVIDERS: ATTEND Orthopaedic Surgery | DX: M25.512 Pain in left shoulder (principal); Z47.1 Aftercare following joint replacement surgery; Z96.612 Presence of left artificial shoulder joint ==

== ENCOUNTER 2019-01-13 13:00 | Outpatient (RCR) | payer OTHER, MEDICARE, BC | END 2019-01-13 14:00 | disposition home or self-care (01) | DRG 561 | LOC: PT 13:00 | PROVIDERS: ATTEND Orthopaedic Surgery | DX: Z47.1 Aftercare following joint replacement surgery (principal); Z96.611 Presence of right artificial shoulder joint ==

== ENCOUNTER 2019-03-09 09:07 | Day surgery (SDC) | payer MEDICARE, BC ==
[~2019-03-09] VITALS: Ht 162.6 cm; Wt 90.7 kg
[2019-03-09 11:28] VITALS: BP 144/63
== END 2019-03-09 10:45 | disposition home or self-care (01) ==
LOC: ENDO 09:07
PROVIDERS: ATTEND Surgery
PROC: 0DJD8ZZ Inspection of Lower Intestinal Tract, Via Natural or Artificial Opening Endoscopic (ICD-10-PCS; principal; 2019-03-09)
DX: Z12.11 Encounter for screening for malignant neoplasm of colon (principal); Z85.038 Personal history of other malignant neoplasm of large intestine; Z90.49 Acquired absence of other specified parts of digestive tract
CPT/HCPCS: G0104

== ENCOUNTER 2019-12-03 02:43 | Observation (INO) | payer MEDICARE, BC ==
[~2019-12-03] VITALS: Ht 162.6 cm; Wt 113.1 kg
--- NOTE | 2019-12-03 02:43 | NUR ---
BY EMS TO ROOM
--- NOTE | 2019-12-03 03:43 | NUR ---
PT. C/O BILATERAL LEG PAIN. AWARE.
[2019-12-03 03:47] LABS: HEMATOCRIT 41.1 % (37.0-47.0); HEMOGLOBIN 12.9 g/dl (12.0-16.0); IMMATURE GRANULOCYTES 0.7 % (0.0-5.0); MEAN CELL VOLUME 88.2 fL CALC (80.0-100.0); MEAN CORPUSCULAR HGB 27.7 pG CALC (26.0-32.0); MEAN CORPUSCULAR HGB CONC 31.4 g/L CALC (32.0-36.0); NEUT# 16.58 thou/uL (2.00-7.15); RED BLOOD COUNT 4.66 mill/uL (4.20-5.60); RED CELL DISTRI WIDTH 17.4 % (11.5-15.5)
[2019-12-03 03:54] LABS: ALBUMIN 3.9 g/dL (3.2-5.0); ALKALINE PHOSPHATASE 81 u/l (38-126); ANION GAP 12 (6-22 (CALC)); BUN 15 mg/dL (8-23); BUN/CREATININE RATIO 15 (12-20 (CALC)); CARBON DIOXIDE 24 mmol/l (22-30); CHLORIDE 104 mmol/l (95-108); GFR 55 ML/MIN (>=60 (CALC)); GFR FOR AFR.AMER. > 60 ML/MIN (>=60 (CALC)); POTASSIUM 3.9 mmol/l (3.5-5.1); SGOT/AST 21 u/l (9-36); SODIUM 136 mmol/l (137-146); TOTAL PROTEIN 7.2 g/dL (6.3-8.2)
[2019-12-03 03:55] LABS: AMYLASE 46 u/l (30-110); LIPASE 25 u/l (23-300)
[2019-12-03 04:00] LABS: BILIRUBIN, TOTAL 0.5 mg/dL (0.0-1.4)
[2019-12-03 04:06] LABS: MYOGLOBIN 41 ng/mL (0 - 62)
--- NOTE | 2019-12-03 04:13 | NUR ---
PO PAIN MED GIVEN PER MD ORDER.
--- NOTE | 2019-12-03 05:55 | NUR ---
PT. STATES HER PAIN IS NOW DECREASED TO A 3 ON A SCALE OF 1-10.
--- NOTE | 2019-12-03 06:38 | NUR ---
PT. STATES, " YOU DON'T KNOW HOW MUCH BETTER I FEEL, I WAS SO SICK."
[2019-12-03 06:45] LABS: URINE BILIRUBIN - DIPSTICK NEGATIVE (NEGATIVE); URINE BLOOD DIPSTICK TRACE-INTACT (NEGATIVE); URINE COLOR YELLOW; URINE GLUCOSE - DIPSTICK NEGATIVE (NEGATIVE); URINE KETONE NEGATIVE (NEGATIVE); URINE PROTEIN - DIPSTICK NEGATIVE (NEG-TRACE); URINE UROBILINOGEN - DIPSTICK 0.2 E.U./dL (0.2)
--- NOTE | 2019-12-03 06:45 | NUR ---
REPORT TO CHASE HERNANDEZ
[2019-12-03 06:51] LABS: URINE LEUK ESTERASE SMALL (NEGATIVE); URINE NITRITE - DIPSTICK POSITIVE (Negative)
[2019-12-03 06:53] LABS: URINE WBC 20-50 WBC/hpf (0-5)
[2019-12-03 06:54] LABS: URINE EPITHELIAL CELLS MODERATE EPI/hpf (0-FEW)
[2019-12-03 06:55] LABS: COCAINE NEGATIVE (NEGATIVE); URINE BACTERIA MANY hpf
[2019-12-03 06:56] LABS: BARBITURATES NEGATIVE (NEGATIVE); METHADONE NEGATIVE (NEGATIVE); OXCYCODONE POSITIVE (NEGATIVE); TETRAHYDROCANNABIONOL NEGATIVE (NEGATIVE); TRICYLIC ANTIDEPRESSANTS POSITIVE (NEGATIVE)
--- NOTE | 2019-12-03 07:34 | NUR ---
PT RESTING QUIETLY ON STRETCHER, ALERT/ORIENTED X3, TALKING ON PHONE, DENIES ANY SYMPTOMS AT THIS TIME. SIDE RAILS UP AND CALL LIGHT WITHIN REACH.
--- NOTE | 2019-12-03 07:38 | NUR ---
ADVISED OF NO TELEMETRY MONITER AVAILABLE FOR PT FOR MED SURG. NOTIFIED PT OF STATUS AND MEAL TRAY ORDERED FOR PT.
--- NOTE | 2019-12-03 08:12 | NUR ---
ADVISED OF WAIT TIME FOR ADMISSION, MEAL TRAY GIVEN, VSS, PT REMAINS ALERT ORIENTED X3, WITH SIDE RAILS UP AND CALL LIGHT WITHIN REACH. WAS ON PHONE TALKING TO FAMILY MEMBER, UPDATING FAMILY ON PT STATUS.
--- NOTE | 2019-12-03 08:22 | NUR ---
REASSESSMENT FOR ADMINISTRATION OF OXYCODONE, PAIN LEVEL A 5 AT THIS TIME.
--- NOTE | 2019-12-03 08:45 | NUR ---
PT UP TO BEDSIDE COMMODE 300 CC OF LIGHT YELLOW URINE OUTPUT. PT BACK IN BED WITH SIDE RAILS UP AND WATCHING TV AT THIS TIME
--- NOTE | 2019-12-03 10:24 | NUR ---
PT REPORT GIVEN AND TRANSFERRED TO MED SURG FLOOR PER STRETCHER.
--- NOTE | 2019-12-03 10:32 | NUR ---
RECEIVED INTO ROOM 273 FROM ER VIA STRETCHER. TRANSFERRED FROM STRETCHER TO BED. ORIENTED TO SURROUNDINGS. EXPLAINED USE OF NURSE CALL LIGHT/TV CONTROLS AND BED CONTROLS. DISCUSSED PLAN OF CARE. DENIES NEEDS AT THIS TIME. CALL BERRY IN REACH.
[2019-12-03 11:00] VITALS: BP 121/79
--- NOTE | 2019-12-03 12:30 | NUR ---
RESTING IN BED. SALINE LOCK FLUSHED AND PATENT. PATIENT ATE 100% OF LUNCH TRAY.
--- NOTE | 2019-12-03 14:00 | NUR ---
PATIENT RESTING WITH EYES CLOSED. RESP EVEN AND UNLABORED.
[2019-12-03 15:40] VITALS: BP 138/84
--- NOTE | 2019-12-03 16:00 | NUR ---
NS STARTED AT 125 ML/HR IN LWR IV SITE ORDERED. PATIENT C/O NAUSEA MEDICATED WITH ZOFRAN 4 MG IVP. T 101.3-MOTRIN 400 MG PO GIVEN COOL CLOTH TO FOREHEAD. ENCOURAGED TO REST.
--- NOTE | 2019-12-03 17:00 | NUR ---
T 100.5. PATIENT RESTING QUIETLY IN BED. STATES FEELING A LITTLE BETTER.
--- NOTE | 2019-12-03 18:00 | NUR ---
T 97.9. PATIENT EATING DINNER.
--- NOTE | 2019-12-03 19:15 | NUR ---
REPORT RECEIVED FROM MARY LARA. PT RESTING IN BED. NO S/S OF DISTRESS AT THIS TIME. WILL CONITNUE TO MONITOR.
[2019-12-03] MEDS ORDERED: TAMSULOSIN HCL0.4 MG PO (19:20)
[2019-12-03] MEDS ORDERED: HYDRALAZINE10 M2 PO (19:20)
[2019-12-03] MEDS ORDERED: DICLOFENAC75 MG PO (19:22)
[2019-12-03] MEDS ORDERED: LEXAPRO10 MG PO (19:23)
[2019-12-03] MEDS ORDERED: AMITRIPTYLIN50 MG PO (19:25)
--- NOTE | 2019-12-03 21:15 | NUR ---
PT RESTING IN BED. RESPIRATIONS EVEN AND UNLABORED. LUNGS SOUND DIMINISHED. PT DENIES ANY PAIN OR DISCOMFORT AT THIS TIME. SAFETY PRECAUTIONS IN PLACE. WILL CONTINUE TO MONITOR.
--- NOTE | 2019-12-04 00:10 | NUR ---
PT RESTING IN BED WITH EYES CLOSED. RESPIRATIONS EVEN AND UNLABORED ON RA. NO S/S OF DISTRESS AT THIS TIME.
[2019-12-04 04:00] VITALS: BP 121/70
--- NOTE | 2019-12-04 04:54 | NUR ---
PT RESTING IN BED RESPIRATIONS EVEN AND UNLABORED ON RA. NO S/S OF DISTRESS AT THIS TIME
[2019-12-04 05:48] LABS: HEMATOCRIT 36.3 % (37.0-47.0); IMMATURE GRANULOCYTES 0.6 % (0.0-5.0); MEAN CELL VOLUME 91.7 fL CALC (80.0-100.0); MEAN CORPUSCULAR HGB 27.5 pG CALC (26.0-32.0); NEUT# 11.44 thou/uL (2.00-7.15); RED BLOOD COUNT 3.96 mill/uL (4.20-5.60); RED CELL DISTRI WIDTH 17.7 % (11.5-15.5)
[2019-12-04 05:59] LABS: HEMOGLOBIN 10.9 g/dl (12.0-16.0)
[2019-12-04 06:03] LABS: CREATININE 1.1 mg/dL (0.5-1.0); MAGNESIUM 1.9 mg/dL (1.6-2.3); POTASSIUM 3.9 mmol/l (3.5-5.1)
[2019-12-04 07:55] VITALS: BP 142/78
[2019-12-04 08:00] VITALS: BP 128/66
--- NOTE | 2019-12-04 08:23 | NUR ---
PT C/O CONSTIPATION FOR SEVERAL DAYS HAD REQUESTED LAXATIVE AT START OF SHIFT, EXPLAINED TO PATIENT GOVERNMENT CLERK WOULD REVIEW MAR TO SEE WHAT WAS AVAILABLE TO HER. FOLLOWING UP WITH PATIENT AFTER REVIEW GOVERNMENT CLERK EXPLAINED THAT PATIENT HAD RECEIVED MIRALAX AT 0629 TODAY. PATIENT STATED "AINT NOBODY BEEN IN HERE TO GIVE ME ANYTHING, DO YOU SEE A CUP". GOVERNMENT CLERK STATED THAT SHE WOULD ADDRESS PATIENTS CONCERNS WITH ATTENDING THIS AM TO SEE WHAT OTHER MODALITIES WOULD BE AVAILABLE TO HER.
[2019-12-04 09:53] VITALS: BP 120/73
[2019-12-04 15:00] VITALS: BP 107/59
--- NOTE | 2019-12-04 19:01 | NUR ---
REPORT RECEIVED FROM MARY LARA. PT RESTING IN BED. NO S/S OF DISTRESS AT THIS TIME. SAFETY PRECAUTIONS IN PLACE. WILL CONTINUE TO MONITOR.
[2019-12-04 20:15] VITALS: BP 121/67
--- NOTE | 2019-12-04 20:30 | NUR ---
PT RESTING IN BED. RESPIRATIONS EVEN AND UNLABORED LUNGS SOUND CLEAR/DIMINISHED. PEDAL PULSES STRONG. PT REPORTS PAIN 3/10. IV TO BE STARTED. CALL BERRY WITHIN REACH. WILL CONTINUE TO MONITOR.
--- NOTE | 2019-12-04 22:50 | NUR ---
MARY THAPA AT BEDSIDE STARTING AN IV #22 ARSEN PT TOLERATED WELL.
[2019-12-05] VITALS: BP 112/70
--- NOTE | 2019-12-05 00:15 | NUR ---
PT RESTING IN BED. RESPIRATIONS EVEN AND UNLABORED. NO S/S OF DISTRESS AT THIS TIME. WILL CONTINUE TO MONITOR.
[2019-12-05 04:00] VITALS: BP 122/73
--- NOTE | 2019-12-05 05:16 | NUR ---
PT RESTING IN BED. NO S/S OF DISTRESS AT THIS TIME
[2019-12-05 05:31] LABS: HEMATOCRIT 34.6 % (37.0-47.0); HEMOGLOBIN 10.5 g/dl (12.0-16.0); MEAN CELL VOLUME 90.3 fL CALC (80.0-100.0); MEAN CORPUSCULAR HGB 27.4 pG CALC (26.0-32.0); MEAN CORPUSCULAR HGB CONC 30.3 g/L CALC (32.0-36.0); RED BLOOD COUNT 3.83 mill/uL (4.20-5.60); RED CELL DISTRI WIDTH 17.5 % (11.5-15.5)
[2019-12-05 05:51] LABS: CREATININE 1.1 mg/dL (0.5-1.0); MAGNESIUM 2.1 mg/dL (1.6-2.3); POTASSIUM 4.2 mmol/l (3.5-5.1)
[2019-12-05 08:44] VITALS: BP 142/88
[2019-12-05 11:00] VITALS: BP 139/71
[2019-12-05] MEDS ORDERED: MONTELUKAST SOD10 MG PO (13:07)
[2019-12-05] MEDS ORDERED: KEFLEX500 M1 PO (13:08)
--- NOTE | 2019-12-05 16:03 | NUR ---
Patient Alert and Oriented X3, able to make needs known. Resp even and unlabored, on room air. IV in Left forearm clean and intact, with no s/s opf infection noted. Sitting up in chair watching television. Denies of having pain or discomfort at this time.
--- NOTE | 2019-12-05 17:07 | NUR ---
PATIENT ALERT AND ORIENTEDx3, PLEASNT AND COOPERATIVE, UPON BEING DISCHARGE HOME, WITH SON. DISCHARGE INSTRUCTION GIVEN TO PATIENT. PATIENT VERBALIZED UNDERSTANDING, UPON DISCHARGE. DENIES OF HAVING PAIN OR DISCOMFORT.
== END 2019-12-05 17:16 | disposition home or self-care (01) ==
LOC: ED 02:43 → ED-I 06:54 → ED 07:07 → ED-I 07:08 → MS2 07:08
PROVIDERS: Emergency Medicine; Nurse Practitioner Family; ADMIT Internal Medicine; ATTEND Internal Medicine
DX: N39.0 Urinary tract infection, site not specified (principal); N17.9 Acute kidney failure, unspecified; I10 Essential (primary) hypertension; J32.9 Chronic sinusitis, unspecified; H61.23 Impacted cerumen, bilateral; G47.33 Obstructive sleep apnea (adult) (pediatric); M79.7 Fibromyalgia; F32.9 Major depressive disorder, single episode, unspecified; M19.90 Unspecified osteoarthritis, unspecified site; E21.3 Hyperparathyroidism, unspecified; D63.8 Anemia in other chronic diseases classified elsewhere; B96.89 Other specified bacterial agents as the cause of diseases classified elsewhere; Z87.440 Personal history of urinary (tract) infections; Z91.81 History of falling; Z85.038 Personal history of other malignant neoplasm of large intestine
CPT/HCPCS: G0378; J1650

== ENCOUNTER 2021-04-17 06:26 | Inpatient (IN) | payer MEDICARE, BC ==
[~2021-04-17] VITALS: Ht 162.6 cm; Wt 124.0 kg
[~2021-04-17 06:26] MED LIST changes: +DICLOFENAC SODI75 M1 PO; +DICLOFENAC75 MG PO; +ESCITALOPRAM OX20 MG PO; +HYDRALAZINE10 M2 PO; +IPRATROPIUM BR0.03 %; +NEURONTIN600 MG PO; +PANTOPRAZOLE SO40 M3; +TIZANIDINE HCL2 MG PO
[2021-04-17 07:04] LABS: HEMOGLOBIN 13.1 g/dl (12.0-16.0); IMMATURE GRANULOCYTES 0.6 % (0.0-5.0); MEAN CELL VOLUME 87.9 fL CALC (80.0-100.0); MEAN CORPUSCULAR HGB 26.8 pG CALC (26.0-32.0); MEAN CORPUSCULAR HGB CONC 30.5 g/dL CAL (32.0-36.0); NEUT# 10.01 thou/uL (2.00-7.15); RED BLOOD COUNT 4.89 mill/uL (4.20-5.60); RED CELL DISTRI WIDTH 18.6 % (11.5-15.5)
[2021-04-17 07:19] LABS: ALBUMIN 4.2 g/dL (3.2-5.0); ALKALINE PHOSPHATASE 77 u/l (38-126); AMYLASE 64 u/l (30-110); ANION GAP 11 (6-22 (CALC)); BILIRUBIN, TOTAL 0.4 mg/dL (0.0-1.4); BUN 16 mg/dL (8-23); BUN/CREATININE RATIO 18 (12-20 (CALC)); CARBON DIOXIDE 27 mmol/l (22-30); CHLORIDE 105 mmol/l (95-108); CREATININE 0.9 mg/dL (0.5-1.0); GFR > 60 ML/MIN (>=60 (CALC)); GFR FOR AFR.AMER. > 60 ML/MIN (>=60 (CALC)); LIPASE 35 u/l (23-300); POTASSIUM 4.2 mmol/l (3.5-5.1); SGOT/AST 20 u/l (9-36); SODIUM 139 mmol/l (137-146); TOTAL PROTEIN 7.7 g/dL (6.3-8.2)
--- NOTE | 2021-04-17 07:20 | NUR ---
PT RESTING IN BED, NO COMPLAINTS AT THIS TIME, CALL LIGHT IN REACH, AWAITING RESULTS
--- NOTE | 2021-04-17 09:04 | NUR ---
GAVE REPORT TO GENARO FERNANDEZ RN HERLINDA
[2021-04-17 09:05] LABS: URINE BILIRUBIN - DIPSTICK NEGATIVE (NEGATIVE); URINE BLOOD DIPSTICK TRACE-LYSED (NEGATIVE); URINE COLOR YELLOW; URINE GLUCOSE - DIPSTICK NEGATIVE (NEGATIVE); URINE KETONE NEGATIVE (NEGATIVE); URINE NITRITE - DIPSTICK POSITIVE (Negative); URINE PROTEIN - DIPSTICK NEGATIVE (NEG-TRACE); URINE SPECIFIC GRAVITY 1.015; URINE UROBILINOGEN - DIPSTICK 0.2 E.U./dL (0.2)
[2021-04-17 09:06] LABS: URINE LEUK ESTERASE MODERATE (NEGATIVE)
[2021-04-17 09:12] LABS: URINE BACTERIA MODERATE hpf; URINE RBC 0-2 RBC/hpf (0-5); URINE SQUAMOUS EPITHELIAL CELL FEW EPI/hpf (0-FEW); URINE WBC 20-50 WBC/hpf (0-5)
--- NOTE | 2021-04-17 10:18 | NUR ---
ATTEMPTED REPORT TO MS RN, BUSY AND WILL CALL BACK
--- NOTE | 2021-04-17 10:38 | NUR ---
PT ARRIVED VIA STRETCHER WITH STAFF. IV AND TELE IN PLACE.
[2021-04-17 10:55] VITALS: BP 115/80
--- NOTE | 2021-04-17 11:30 | NUR ---
ASSESSMENT IS COMPLETED:IV SITE IS FREE FROM REDNESS OR EDEMA. HR IS REG,PULSES ARE STRONG X4, ABD IS SOFT WITH ACTIVE BS. BREATH SOUNDS ARE CLEAR BILATERALLY. TELE MONITOR IN PLACE.
[2021-04-17] MEDS ORDERED: FAMOTIDINE20 M1 PO (12:07)
[2021-04-17] MEDS ORDERED: BYSTOLIC5 MG PO (12:07)
[2021-04-17] MEDS ORDERED: AMITRIPTYLIN25 MG PO (12:08)
[2021-04-17] MEDS ORDERED: PROTONIX40 M2 PO (12:08)
[2021-04-17] MEDS ORDERED: VERAPAMIL HCL180 M5 PO (12:09)
[2021-04-17] MEDS ORDERED: GABAPENTIN300 M2 PO (12:10)
[2021-04-17] MEDS ORDERED: IBUPROFEN 200200 MG PO (13:51)
[2021-04-17 16:00] VITALS: BP 167/82
--- NOTE | 2021-04-17 16:00 | NUR ---
PT IS RELAXING IN BED CONTINUES TO C/O ABD PAIN.
--- NOTE | 2021-04-17 18:05 | NUR ---
PT C/O STOMACH HURTING, WANTING TO :"THROW UP, HAVE A BM, OR SOMETHING". GAVE MILK OF MAGNESIA. TO SEE IF IT WOULD HELP.
[2021-04-17 19:06] VITALS: BP 157/80
--- NOTE | 2021-04-17 19:45 | NUR ---
PT LAYING IN BED, APPEARS UNCOMFORTABLE. REPORTS NAUSEA W/O EMESIS AND "BURNING" ABD PAIN 10/10. ABD SOFT, NON-TENDER TO GENTLE PALPATION, BOWEL SOUNDS PRESENT THROUGHOUT. PT IS OBESE. REPORTS DIARRHEA ON THURSDAY AND TAKING IMMODIUM AND HAS HAD NO BM SINCE. PT DID NOT EAT ANY OF DINNER TRAY. LUNGS CLEAR AND DIMINISHED. REPSIRATIONS REGULAR AND UNLABORED. SPO2 96% ON RA. NO EDEMA NOTED TO BLE. PLAN OF CARE DISCUSSED WITH PT, PT VERBALIZES UNDERSTANDING AND AGREES. DENIES FURTHER NEEDS AT THIS TIME, CALL BERRY WITHIN REACH, AGREES TO CALL PRN. ITEMS WITHIN REACH. BED LOCKED IN LOW POSITION WITH BEDRAILS UP X2.
--- NOTE | 2021-04-17 19:50 | NUR ---
DISCUSSED WITH PT, SPOKE W/ J SAE NAGEL REGARDING PT'S STATUS AND COMPLAINTS. ORDERS ARE FOR MORPHINE FOR PAIN. ZOFRAN FOR NAUSEA. CLEAR LIQUIDS UNTIL MIDNIGHT AND NPO AFTER.
--- NOTE | 2021-04-17 20:00 | NUR ---
SPOKE WITH PT ABOUT NEW ORDERS, VERBAL EDUCATION PROVIDED ON MORPHINE AND ZOFRAN. PT VERBALIZES UNDERSTANDING. NEW MEDICATION ORDERS PENDING RX VERIFICATION. PT MADE AWARE OF WAIT TIME.
--- NOTE | 2021-04-17 20:30 | NUR ---
MORPHINE AND ZOFRAN ADMINISTERED WITH SCHEDULED MEDICATIONS. SEE E-MAR.
--- NOTE | 2021-04-17 22:17 | NUR ---
PT APPEARS TO BE SLEEPING COMFORTABLY. LAYING IN BED, EYES CLOSED. NO APPARENT DISTRESS. RESPIRATIONS REGULAR AND UNLABORED. CALL BERRY REMAINS WITHIN REACH.
[2021-04-18] VITALS: BP 121/61; BP 157/86
--- NOTE | 2021-04-18 00:23 | NUR ---
MORPHINE AND ZOFRAN ADMINISTERED FOR C/O NAUSEA AND BURNING ABD PAIN 05/18. SEE E-JAN.
--- NOTE | 2021-04-18 03:00 | NUR ---
PT APPEARS TO BE SLEEPING COMFORTABLY. LAYING IN BED, EYES CLOSED. NO APPARENT DISTRESS. RESPIRATIONS REGULAR AND UNLABORED. CALL BERRY REMAINS WITHIN REACH.
[2021-04-18 04:00] VITALS: BP 155/87
--- NOTE | 2021-04-18 04:20 | NUR ---
MORPHINE AND ZOFRAN ADMINISTERED FOR C/O NAUSEA AND BURNING ABD PAIN 05/18. SEE E-JAN.
[2021-04-18 04:48] LABS: ALBUMIN 3.4 g/dL (3.2-5.0); ALKALINE PHOSPHATASE 62 u/l (38-126); ANION GAP 7 (6-22 (CALC)); BILIRUBIN, TOTAL 0.2 mg/dL (0.0-1.4); BUN 12 mg/dL (8-23); BUN/CREATININE RATIO 18 (12-20 (CALC)); CARBON DIOXIDE 28 mmol/l (22-30); CHLORIDE 109 mmol/l (95-108); CREATININE 0.7 mg/dL (0.5-1.0); GFR > 60 ML/MIN (>=60 (CALC)); GFR FOR AFR.AMER. > 60 ML/MIN (>=60 (CALC)); POTASSIUM 4.3 mmol/l (3.5-5.1); SGOT/AST 16 u/l (9-36); SODIUM 139 mmol/l (137-146); TOTAL PROTEIN 6.2 g/dL (6.3-8.2)
[2021-04-18 07:50] VITALS: BP 141/66
--- NOTE | 2021-04-18 07:50 | NUR ---
ASSESSMENT IS COMPLETED: IV SITE IS FREE FROM REDNESS OR EDEMA. HR IS REG,PULSES ARE STRONG X4, ABD IS SOFT WITH ACTIVE BS, BREATH SOUNDS ARE CLEAR,BILATERALLY, TELE MONITOR IN PLACE. PT HAD TO BE PLACED ON O2 @ 1LITER WITH NC.
[2021-04-18 11:00] VITALS: BP 159/81
--- NOTE | 2021-04-18 12:30 | NUR ---
PT IS RELAXING IN BED WITH MO DISTRESS NOTED.
[2021-04-18 16:00] VITALS: BP 136/65
--- NOTE | 2021-04-18 16:15 | NUR ---
PT HAS BEEN IN THE BED. C/O "BED IS UNCOMFORTABLE" EXPLAINED THAT NO HOSPITAL BED IS COMFORTABLE. NO MATTER WHAT HOSPITAL YOU ARE IN. VERBALIZED UNDERSTANDING.
--- NOTE | 2021-04-18 16:50 | NUR ---
PT REFUSED TO HAVE MRI, WANTS TO HAVE AN OPEN MRI. EXPLAINED THAT WE DO NOT HAVE THAT HERE. INFORMED DR BENITO. PT STATED" MY STOMACH IS TOO BIG FOR IT."
[2021-04-18 19:00] VITALS: BP 126/72
--- NOTE | 2021-04-18 19:00 | NUR ---
REPORT RECEIVED FROM Kaushal MUJICA LPN, CARE OF PTS ASSUMED AT THIS TIME.
--- NOTE | 2021-04-18 20:30 | NUR ---
PT RESTING IN BED WATCHING TV, NO APPARENT DISTRESS OR DISCOMFORT. PHYSICAL ASSESMENT COMPLETED. PT A/OX3, COOPERATIVE. TELEMETRY #8612, REPORTEDLY SR PACS 80S. NON-INVASIVE HEMODYNAMICS STABLE AND WITHIN PT'S BASELINE. LUNGS CLEAR AND DIMINISHED LIKELY SECONDARY TO OBESE BODY HABITUS. RESPIRATIONS REGULAR AND UNLABORED. SP02 100% ON ROOM AIR. ABDOMEN DISTENDED AND SOFT. R-AC 20G IV PATENT AND INFUSING NS@100ML/H. PLAN OF CARE DISCUSSED WITH PATIENT. PT VERBALIZES UNDERSTANDING AND VERBALIZES AGRREEMENT. REQUESTS DIET COLA, DENIES FURTHER NEEDS. CALL BERRY WITHIN REACH, AGREES TO CALL PRN. ALL ITEMS WITHIN REACH. BED LOCKED IN LOW POSITION WITH BEDRAILS UP X2.
--- NOTE | 2021-04-18 20:30 | NUR ---
PT RESTING IN BED WATCHING TV, NO APPARENT DISTRESS OR DISCOMFORT. PHYSICAL ASSESMENT COMPLETED. PT A/OX3, COOPERATIVE. TELEMETRY #8612, REPORTEDLY NSR 80S. NON-INVASIVE HEMODYNAMICS STABLE AND WITHIN PT'S BASELINE. LUNGS CLEAR AND DIMINISHED LIKELY SECONDARY TO OBESE BODY HABITUS. RESPIRATIONS REGULAR AND UNLABORED. SP02 100% ON ROOM AIR. ABDOMEN DISTENDED AND SOFT. R-AC 20G IV PATENT AND INFUSING NS@100ML/H. PLAN OF CARE DISCUSSED WITH PATIENT. PT VERBALIZES UNDERSTANDING AND VERBALIZES AGRREEMENT. REQUESTS DIET COLA, DENIES FURTHER NEEDS. CALL BERRY WITHIN REACH, AGREES TO CALL PRN. ALL ITEMS WITHIN REACH. BED LOCKED IN LOW POSITION WITH BEDRAILS UP X2.
--- NOTE | 2021-04-18 21:13 | NUR ---
SCHEDULED MEDICATIONS AMD REQUESTED PRN MEDICATIONS ADMINISTERED. SEE E-MAR.
[2021-04-19 04:00] VITALS: BP 111/74
--- NOTE | 2021-04-19 07:00 | NUR ---
REPORT RECEIVED FROM NIGHT NURSEARIELLE
[2021-04-19 07:45] VITALS: BP 121/60
--- NOTE | 2021-04-19 08:00 | NUR ---
PT WAS FOUND RESTING IN BED;PT IS A&OX3;VS AND ASSESSMENT WERE COMPLETED;HEART SOUNDS ARE REGULAR IN RATE AND RHYTHM;LUNG SOUNDS ARE CLEAR;RESPIRATIONS ARE EVEN AND UNLABORED ON RA;#20G IV IN RAC IS RUNNING NS@100ML/HR;IV SITE APPEARS FREE OF COMPLICATIONS AT THIS TIME;SAFETY PRECAUTIONS IN PLACE;CALL LIGHT WITHIN REACH;BED IN LOWEST POSITION;PT ENCOURAGED TO CALL WITH ANY NEEDS OR CONCERNS;WILL CONTINUE TO MONITOR.
--- NOTE | 2021-04-19 10:00 | NUR ---
AT BEDSIDE DISCUSSING POC WITH PT
[2021-04-19 10:57] VITALS: BP 145/85
--- NOTE | 2021-04-19 12:00 | NUR ---
PT WAS FOUND RESTING IN BED;PT IS CURRENTLY ON NPO STATUS DUE TO ORDER FOR US OF THE GALLBLADDER;TELE IS IN PLACE;PT IS REPORTING N/V'PT MEDICATED WITH ZOFRAN 4MG IV;SAFETY PRECAUTIONS IN PLACE;CALL LIGHT WITHIN REACH;BED IN LOWEST POSITION;WILL CONTINUE TO MONITOR.
--- NOTE | 2021-04-19 12:18 | NUR ---
PT WAS TRANSPORTED IN STABLE CONDITION TO US VIA WC ACCOMPANIED BY STAFF
--- NOTE | 2021-04-19 12:45 | NUR ---
PT RETURNED FROM US VIA WC IN STABLE CONDITION ACCOMPANIED BY STAFF
[2021-04-19 15:20] VITALS: BP 142/84
--- NOTE | 2021-04-19 16:00 | NUR ---
PT WAS FOUND SLEEPING IN BED;TELE IS IN PLACE;#20G IV IN RAC IS RUNNING NS@100ML/HR;IV SITE APPEARS FREE OF COMPLICATIONS AT THIS TIME;SAFETY PRECAUTIONS IN PLACE;CALL LIGHT WITHIN REACH;BED IN LOWEST POSITION;WILL CONTINUE TO MONITOR.
--- NOTE | 2021-04-19 17:02 | NUR ---
CALL WAS MADE TO ;TOLD HIM THAT I HAD RECEIVED A CALL EARLIER FROM [facility] INFORNING ME OF HER UPCOMING SURGERY WITH HIM @9OO TOMORROW;THEY ALSO INQUIRED ABOUT A COVID-TEST RESULT AND STATED THAT SHE WOULD NEED TO BE NPO AFTER MIDNIGHT;PT HAD ALSO BEEN ASKING ME QUESTIONS ABOUT HER CONDITION AND I LET HIM KNOW;HE TOLD ME THAT I COULD TELL HER THAT SHE HAD GALLSTONES AND SHE WOULD BE GETTING SURGERY ON HER GALLBLADDER IN THE AM;HE STATED THAT HE WOULD SEE HER IN THE AM WHEN SHE ARRIVED IN OR;NO FURTHER ORDERS WERE GIVEN;PT WAS INFORMED OF HER UPCOMING SURGERY AND THAT WOULD SPEAK WITH HER IN THE AM PRE-SURGERY;SHE EXPRESSED UNDERSTANDING;
--- NOTE | 2021-04-19 18:15 | NUR ---
CALL WAS RECEIVED FROM ;HE WAS LETTING ME KNOW THAT THE PT WOULD BE GOING FOR SURGERY IN THE AM AND SHE WOULD NEED TO BE NPO AFTER MIDNIGHT;HE STATED THAT THE PT CAN BE INFORMED THAT SHE IS HAVING SURGERY ON HER GALLBLADDER AND THAT HE HAD SPOKEN WITH AND HE IS AWARE OF THE SITUATION WELL;PT WAS INFORMED OF THE CONVERSATION
--- NOTE | 2021-04-19 19:01 | NUR ---
REPORT FROM KLAUDIA HERNANDEZ. ASSUMED PT CARE.
[2021-04-19 19:30] VITALS: BP 138/77
--- NOTE | 2021-04-19 20:15 | NUR ---
PT NOTED RESTING IN BED WATCHING TV. ALERT AND ORIENTED X4. NO APPARENT DISTRESS NOTED. RESPIRATIONS EVEN AND UNLABORED. IV SITE APPEARS HEALTHY WITH IVF INFUSING. BAKED AND GRAPHITE INSPECTOR IN PLACE. PT DENIES ANY PAIN OR DISCOMFORT. DISCUSSED POC AND NPO AFTER MIDNIGHT. PT VERBALIZED UNDERSTANDING. CALL LIGHT WITHIN REACH. WILL CONTINUE TO MONITOR.
[2021-04-19 23:30] VITALS: BP 145/81
[2021-04-20] VITALS (11 sets, daily range): BP systolic 112–143; BP diastolic 65–86
--- NOTE | 2021-04-20 00:12 | NUR ---
PT RESTING IN BED WITH EYES CLOSED. NO APPARENT DISTRESS NOTED. RESPIRATIONS EVEN AND UNLABORED. IVF INFUSING WITHOUT DIFFICULTY. CALL LIGHT WITHIN REACH. WILL CONTINUE TO MONITOR.
--- NOTE | 2021-04-20 04:45 | NUR ---
INHALATION THERAPY AIDE AT BEDSIDE TO OBTAIN LABS.
[2021-04-20 05:07] LABS: HEMATOCRIT 37.9 % (37.0-47.0); HEMOGLOBIN 11.2 g/dl (12.0-16.0); MEAN CELL VOLUME 89.8 fL CALC (80.0-100.0); MEAN CORPUSCULAR HGB 26.5 pG CALC (26.0-32.0); MEAN CORPUSCULAR HGB CONC 29.6 g/dL CAL (32.0-36.0); RED BLOOD COUNT 4.22 mill/uL (4.20-5.60); RED CELL DISTRI WIDTH 18.4 % (11.5-15.5)
[2021-04-20 05:26] LABS: CREATININE 1.1 mg/dL (0.5-1.0); MAGNESIUM 2.1 mg/dL (1.6-2.3); POTASSIUM 4.1 mmol/l (3.5-5.1); TOTAL PROTEIN 5.8 g/dL (6.3-8.2)
[2021-04-20 05:29] LABS: BILIRUBIN, TOTAL 0.1 mg/dL (0.0-1.4)
--- NOTE | 2021-04-20 07:24 | NUR ---
PATIENT IS NPO. ASSESSMENT DONE. PATIENT IS ALERT AND OREINT X3. IVF INFUSING WELL. PATIENT IS NAUSEOUS. MEDICATED PATIENT WITH ZOFRAN. DISCUSS POC WITH PATIENT AND SHE VERBALIZED UNDERSTANDING. PATIENT DENIES PAIN AT THIS TIME. TELE IN PLACE. RESPS EVEN AND UNLABORED. PATIENT DENIES ANY OTHER NEEDS AT THIS TIME. CALL LIGHT IN REACH.
--- NOTE | 2021-04-20 08:15 | NUR ---
PATIENT WENT TO OR VIA STRETCHER BY MARY IBARRA.
--- NOTE | 2021-04-20 11:48 | NUR ---
PATIENT CAME FROM OR VIA STRETCHER BY MARY IBARRA AND REPORT RECEIVED. PATIENT IS RESTING IN BED WITH NO S/S OF DISTRESS NOTED. PATIENT DENIES PAIN. X4 INCISION IN ABD WITH DERMABOND CDI. I.S AT BEDSIDE. CALL LIGHT IN REACH.
--- NOTE | 2021-04-20 14:00 | NUR ---
PATIENT IS SLEEPING IN BED WITH NO S/S OF DISRESS NOTED. PO FLUIDS PROVIDED SCD IN BAIRON LEGS. CALL LIGHT IN REACH.
--- NOTE | 2021-04-20 16:05 | NUR ---
PATIENT IS WAKE STATED WE DONT WANT HER HERE. REORINET PATIENT. PATIENT STATED SHE NEEDS TO USE TH BSC. X2 PERSON ASSISTED PATIENT TO USE THE BSC. PATIENT VOIDED. PATIENT REFUSED TO SIT IN THE RECLIENR. WE ASSISTED PATIENT BACK IN BED. PO FLUIDS PROVIDED. PATIENT DENIES ANY OTHER NEEDS. CALL LIGHT IN REACH.
--- NOTE | 2021-04-20 17:45 | NUR ---
PATIENT REFUSED TO GET UP IN THE RECLINER. STATED SHE HAS PAIN IN ABD 04/18. MEDICATED PATIENT WITH OXYCODONE. PATIENT STATED SHE WILL GET UP TOMORROW. CALL LIGHT IN REACH.
--- NOTE | 2021-04-20 19:55 | NUR ---
PT NOTED RESTING IN BED WATCHING TV. PT ALERT AND ORIENTED X3. NO APPARENT DISTRESS NOTRED. RESPIRATIONS EVEN AND UNLABORED. 02 @ 3L/M VIA NC. X4 INCISIONS TO ABD CLOSED WITH DERMABOND, CDI. MANAGER IT TRAINING IN PLACE. IVF INFUSING WITHOUT DIFFICULTY. PT REQUESTING TO GET OOB INTO CHAIR. PT ASSISTED AT THIS TIME X2 PERSON ASSIST. PT STATE PAIN AFTER GETTING UP 10/10 ASSOCIATED WITH NAUSEA. MEDICATED FOR BOTH AT THIS TIME UPON REQUEST. DISCUSSED POC AND SAFETY PRECAUTIONS. PT VERBALIZED UNDERSTANDING. CALL LIGHT WITHIN REACH. WILL CONTINUE TO MONITOR.
--- NOTE | 2021-04-20 21:00 | NUR ---
AT APPROXIMATELY 2100 PT WAS FOUND LAYING ON FLOOR NEXT TO CHAIR. PT STATES SHE WAS TRYING TO GET UP WHEN SHE SLIPPED AND FELL. FALL WAS UNWITNESSED. PT HAD NONSKID SOCKS ON WITH CALL LIGHT WITHIN REACH. PT DENIES ANY PAIN OR DISCOMFORT. PT ALSO DENIES HITTING HEAD. VS 143/71, 107, 22, 97.7, 95 ON 3L/M VIA NC. NO APPARENT INJURIES NOTED. PT NOT ABLE TO GET UP OFF FLOOR WITH ASSISTANCE DUE TO GENERALIZED WEAKNESS, STAFF NOT ABLE TO SAFETY LIFT PT. MECHANICAL LIFT WAS USED TO PLACED BACK INTO BED X3 PERSON ASSIST. NO APPARENT NEURO DEFICITS NOTED. PT ALERT AND ORIENTED X3. ABD INCISIONS REMAIN INTACT WITH DERMABOND. PT ABLE TO MOVE ALL EXTREMITIES. PT EDUCATED ON SAFTEY AND PAIN REPORTING. CALL LIGHT WITHIN REACH AND BED ALARM SET FOR SAFETY. PHYSICIAN NOTIFIED OF INCIDENT NO NEW ORDERS RECEIVED AT THIS TIME. WILL CONTINUE TO MONITOR.
--- NOTE | 2021-04-20 22:12 | NUR ---
PT APPEARS CONFUSED, NOT ABLE TO ANSWER ANY QUESTIONS FOR STAFF. YELLING OUT, NO COOPERATING WITH STAFF, PARANOID, NOT FOLLOWING COMANDS. ROOF BOLTER OPERATOR PHYSICIAN NOTIFIED INSTRUCTED TO CALL STROKE ALERT.
--- NOTE | 2021-04-20 22:14 | NUR ---
STROKE ALERT CALLED, NOT ABLE TO ASSESS BP, OTHER VS HR 91, 22, 98% ON 3L/M VIA NC. BS 100. PT TRANSFERED TO STRETCHER AND TRANSFERED TO CT.
--- NOTE | 2021-04-20 22:25 | NUR ---
ARRIVED TO CT, TELENEUROLOGIST DR. BOWLING PRESENT AT THIS TIME, ASSESSED PRIOR TO CT.
--- NOTE | 2021-04-20 22:40 | NUR ---
PT TRANSFERED BACK TO [facility]. ROOM MOVED FROM 279 TO 280 FOR CLOSER MONITORING.
--- NOTE | 2021-04-21 00:15 | NUR ---
X2 ATTEMPTS TO OBTAIN NEW IV SITE DUE TO CURRENT ON . INNOVATION ANALYST NOT SUCCESSFUL. CURRENT IV SITE APPEARS HEALTY, DRESSING CHANGED AT THIS TIME. WILL ATTEMPT TO HAVE ANOTHER NURSE TRY WHEN AVAILABLE OR PASS ON TO DAY SHIFT.
[2021-04-21 03:43] VITALS: BP 107/63
[2021-04-21 05:26] LABS: HEMATOCRIT 33.5 % (37.0-47.0); HEMOGLOBIN 9.7 g/dl (12.0-16.0); MEAN CELL VOLUME 92.3 fL CALC (80.0-100.0); MEAN CORPUSCULAR HGB 26.7 pG CALC (26.0-32.0); RED BLOOD COUNT 3.63 mill/uL (4.20-5.60); RED CELL DISTRI WIDTH 18.6 % (11.5-15.5)
[2021-04-21 05:57] LABS: ALBUMIN 2.7 g/dL (3.2-5.0); CREATININE 1.1 mg/dL (0.5-1.0); POTASSIUM 4.1 mmol/l (3.5-5.1); TOTAL PROTEIN 5.2 g/dL (6.3-8.2)
[2021-04-21 06:19] LABS: BILIRUBIN, TOTAL 0.2 mg/dL (0.0-1.4)
[2021-04-21 08:33] VITALS: BP 132/77
--- NOTE | 2021-04-21 08:33 | NUR ---
PATIENT IN SEMI-FOWLERS IN BED. PATIENT IS ALERT AND OREINT X3 BUT DROSWY. TELE IN PLACE. RESP EVEN AND UNLABORED. LOWER O2 FROM 3L TO 2L VIA NC. O2 IS 99%. PATIENT STATED PAIN IN ABD 04/18 BUT REFUSED PAIN MEDICATION AT THIS TIME. X4 INCISIONS IN ABD WITH DERMANOND IN PLACE CDI. PO FLUIDS PROVIDED. SAFETY PRECAUTIONS REINFROCED AND CALL LIGHT IN REACH. BED ALARM IN PLACE.
[2021-04-21 10:35] VITALS: BP 144/64
--- NOTE | 2021-04-21 12:47 | NUR ---
PATIENT IS SEMI-FOWELRS IN BED. PATIENT IS CONFUSED WHY SHE IS IN THIS ROOM. REORIENT PATIENT. PATIENT VERBALIZED UNDERSTANDING. PATIENT STATED PAIN IN ABD 6/10 REQUESTING TYLENOL. MEDICATED PATIENT WITH TYLENOL. PATIENT DENIES ANY OTHER NEEDS AT THIS TIME. CALL LIGHT IN REACH. BED ALARM IN PLACE.
--- NOTE | 2021-04-21 13:32 | NUR ---
PATIENT IS SITTING IN THE RECLIENR. DR. LEROY AT BEDSIDE TO ASSESS PATIENT. BEDALARM IN PLACE AND CALL LIGHT IN REACH.
[2021-04-21 15:05] VITALS: BP 121/57
--- NOTE | 2021-04-21 15:07 | NUR ---
PATIENT IS SITTING IN THE RECLIENR. X2 PERSON ASSISTED PATIENT TO THE BSC PATIENT VOIDED. THEN WE ASSISTED PATIENT TO BED. PATIENT STATED PAIN IN ABD 06/18. MEDICATED PATIENT WITH OXYCODONE. PATIENT HAS HAD THE O2 OFF. O2 READING 92% AT RA. PO FLUIDS PROVIDED. PATIENT DENIES ANY OTHER NEEDS AT THIS TIME. CALL LIGHT IN REACH.
[2021-04-21 19:00] VITALS: BP 122/60
--- NOTE | 2021-04-21 20:00 | NUR ---
PATIENT IS AWAKE IN SEMI FOWLERS POSITION. RESPIRATIONS EASY. ON TELEMTRY. HEART RATE REGULAR. C/O PAIN TO ABDOMEN. INCISIONS TO ABDOMEN CLEAN DRY AND INTACT WITH DERMABOND. UP TO BSC X2 ASSIST. FALL PRECAUTIONS MAINTAINED. BED ALARM ON. BED IN LOW POSTION. CALL LIGHT WITHIN REACH.
[2021-04-22] VITALS: BP 127/67
[2021-04-22 04:00] VITALS: BP 117/53
[2021-04-22 05:32] LABS: HEMATOCRIT 35.5 % (37.0-47.0); HEMOGLOBIN 10.1 g/dl (12.0-16.0); IMMATURE GRANULOCYTES 3.7 % (0.0-5.0); MEAN CELL VOLUME 94.2 fL CALC (80.0-100.0); MEAN CORPUSCULAR HGB 26.8 pG CALC (26.0-32.0); MEAN CORPUSCULAR HGB CONC 28.5 g/dL CAL (32.0-36.0); NEUT# 6.27 thou/uL (2.00-7.15); RED BLOOD COUNT 3.77 mill/uL (4.20-5.60); RED CELL DISTRI WIDTH 18.8 % (11.5-15.5)
--- NOTE | 2021-04-22 05:53 | NUR ---
RESTING WITH EYES CLOSED. RESPIRATIONS UNLABORED.
[2021-04-22 05:54] LABS: ALBUMIN 2.8 g/dL (3.2-5.0); CREATININE 1.1 mg/dL (0.5-1.0); POTASSIUM 4.2 mmol/l (3.5-5.1); TOTAL PROTEIN 5.5 g/dL (6.3-8.2)
--- NOTE | 2021-04-22 05:55 | NUR ---
PATIENT MEDICATED FOR PAIN. IVABT INFUSING. FALL PRECAUTIONS MAINTAINED.
[2021-04-22 06:26] LABS: BILIRUBIN, TOTAL 0.1 mg/dL (0.0-1.4)
[2021-04-22 07:51] VITALS: BP 132/68
--- NOTE | 2021-04-22 08:00 | NUR ---
PT RESTING WITH EYES CLOSED; A/O X3; PT REFUSED BREAKFAST; NO COMPLAINTS VOICED AT THIS TIME; CALL BERRY WITHIN REACH; WILL CONTINUE TO MONITOR.
--- NOTE | 2021-04-22 09:00 | NUR ---
PT. INCONTINENT OF LARGE AMOUNT OF SOFT GREEN STOOL AND URINE; PT GIVEN COMPLETE BED BATH; WILL CONTINUE TO MONITOR.
--- NOTE | 2021-04-22 09:50 | NUR ---
PT'S DAUGHTER CALLED FOR UPDATE ON PT STATUS; GIVEN AT THIS TIME
--- NOTE | 2021-04-22 10:20 | NUR ---
DR. MAC IN TO SEE PT; PLAN OF CARE DISCUSSED;
[2021-04-22 10:30] VITALS: BP 134/59
[2021-04-22 14:58] VITALS: BP 144/72
--- NOTE | 2021-04-22 16:54 | NUR ---
Went to the patient's room today to evaluate patient. Patient was sound asleep. Attempted to wake patient but was unsuccessful. Patient will be rescheduled tomorrow.
[2021-04-22 19:08] VITALS: BP 121/78
--- NOTE | 2021-04-22 21:54 | NUR ---
PATIENT TRANSPORTED TO CT AT 2014 VIA STRETCHER IN STABLE CONDITION AND RETURNED AT 2034 IN STABLE CONDITION. ASSESSMENT COMPLETED AT 1999. PM MEDICATIONS GIVEN WITH PERCOCET 3/325 FOR PAIN. CURRENTLY RESTING WITH EYES CLOSED. RESPIRATIONS EASY. BED IN LOW POSITION. CALL LIGHT WITHIN REACH. BED ALARM ON. FALL PRECAUTIONS MAINTAINED.
[2021-04-23 00:46] VITALS: BP 125/71
--- NOTE | 2021-04-23 01:24 | NUR ---
PATIENT'S VAD LW INFILTRATED HALF WAY THROUGH ZOSYN DOSE. ZOSYN STOPPED, VAD DISCONTINUED. WARM COMPRESS APPLIED. ATTEMPTED TO START NEW IV X2, CALLED FOR ASSISTANCE, RAVINDRA HERNANDEZ ATTEMPTED X2, AND ED NURSE ATTEMPTED X2 WELL WITHOUT SUCCESS. NOTIFIED FOOD CASHIER. ENGRAVER RUBBER TO ACQUIRE THE VEIN FINDER AND ANOTHER INDIVIDUAL TO START IV. PATIENT TOLERATED WELL. BED IN LOW POSITION. CALL LIGHT WITHIN REACH.
--- NOTE | 2021-04-23 03:29 | NUR ---
AT 0255 PATRICK HERNANDEZ FROM ED WAS ABLE TO GET VENOUS ACCESS WITH #22 TO THE RIGHT BREAST X2 ATTEMPTS. PATIENT TOLERATED WELL. ZOSYN RESTARTED. BED IN LOW POSITION. CALL LIGHT WITHIN REACH.
[2021-04-23 04:00] VITALS: BP 141/70
[2021-04-23 06:09] LABS: HEMATOCRIT 34.4 % (37.0-47.0); HEMOGLOBIN 9.9 g/dl (12.0-16.0); MEAN CELL VOLUME 93.2 fL CALC (80.0-100.0); MEAN CORPUSCULAR HGB 26.8 pG CALC (26.0-32.0); MEAN CORPUSCULAR HGB CONC 28.8 g/dL CAL (32.0-36.0); RED BLOOD COUNT 3.69 mill/uL (4.20-5.60); RED CELL DISTRI WIDTH 18.8 % (11.5-15.5)
[2021-04-23 06:29] LABS: ALBUMIN 2.7 g/dL (3.2-5.0); ALKALINE PHOSPHATASE 62 u/l (38-126); ANION GAP 11 (6-22 (CALC)); BUN 14 mg/dL (8-23); BUN/CREATININE RATIO 15 (12-20 (CALC)); CARBON DIOXIDE 19 mmol/l (22-30); CHLORIDE 117 mmol/l (95-108); GFR 54 ML/MIN (>=60 (CALC)); GFR FOR AFR.AMER. > 60 ML/MIN (>=60 (CALC)); POTASSIUM 4.1 mmol/l (3.5-5.1); SGOT/AST 25 u/l (9-36); SODIUM 143 mmol/l (137-146); TOTAL PROTEIN 5.4 g/dL (6.3-8.2)
[2021-04-23 06:41] LABS: BILIRUBIN, TOTAL 0.2 mg/dL (0.0-1.4)
[2021-04-23 08:00] VITALS: BP 148/82
--- NOTE | 2021-04-23 08:15 | NUR ---
PT RESTING IN BED VSS ALERT ORIENTED X3 DENIED PAIN AT PRESENT TIME IV FLUIDS INFUSING WELL SITE INTACT & PATENT WILL CONTINUE TO ROUNDING ON PT.
[2021-04-23 10:53] VITALS: BP 156/71
--- NOTE | 2021-04-23 12:00 | NUR ---
PT IS RELAXING IN BED WITH NO DISTRESS NOTED. IV ISTE IS FREE FROM REDNESS ORE TANJA.
--- NOTE | 2021-04-23 13:56 | NUR ---
SWABBED THE R NARE PT TOLERATED WELL.
[2021-04-23 14:20] VITALS: BP 165/74
[2021-04-23] MEDS ORDERED: OMNICEF300 MG PO (15:03)
[2021-04-23] MEDS ORDERED: LORTAB 5/3255 MG PO (15:03)
--- NOTE | 2021-04-23 16:00 | NUR ---
PT WAS CLEANED UP FROM STOOL NO DISTRESS NOTED. FAMILY HAS BEEN VISITING
--- NOTE | 2021-04-23 18:00 | NUR ---
IV SITE AND TELE MONITOR TAKEN OFF PT. CATHETER INTACT. NO REDNESS OR EDEMA. DISCHARGE INSTRUCTIONS GIVEN TO [facility]. Discharge instructions given. Patient verbalizes understanding of same. Discharged in stable condition via Medical Transport to *Other with *Other. All belongings sent with pt.
--- NOTE | 2021-04-23 18:32 | NUR ---
PT BEING TRANSPORTED BY [facility]. CALLED AND SPOKE WITH JERMAIN HERNANDEZ AT PT [facility]. ALSO CALLED HER SON PAO TO INFORM OF THE PT BEING TRANSPORTED AND HER CPAP WENT WITH HER.
--- NOTE | 2021-04-24 13:48 | NUR ---
SON CALLED AND INQUIRED IF PT HAD FELL. RECALLED BACK AND INFORMED THAT "PT DID FALL UNWITNESSED BY STAFF, SHE WAS TRYING TO GET OUT OF BED AND SLIPPED" WAS TAKEN FOR TEST. VERBALIZED UNDERSTANDING.
--- NOTE | 2021-04-30 14:32 | NUR ---
PER PHYSICIAN, ATTEMPTED TO SCHEDULE PATIENT POST OP FOLLOW-UP FROM 04/20/21 PROCEDURE. CALLED ON 04/24/21, 04/25/21, 04/26/21, 04/29/21 TO NUMBERS ON FILE [phone] AND EMERGENCY CONTACT [phone], LEFT MESSAGES TO RETURN CALL TO OFFICE FOR APPOINTMENT. ON NUMBER [phone] NO VOICEMAIL ACTIVATED TO RETURN CALL. ON NUMBER [phone] LEFT MESSAGE TO CALL OFFICE.
== END 2021-04-23 18:20 | DRG 418 ==
LOC: ED 06:26 → ED-I 09:40 → ED 09:47 → MS2 09:56
PROVIDERS: Nurse Practitioner; Physician Assistant; ADMIT Internal Medicine; ATTEND Internal Medicine
PROC: 0FT44ZZ Resection of Gallbladder, Percutaneous Endoscopic Approach (ICD-10-PCS; principal; 2021-04-20)
PROC: 0WQF0ZZ Repair Abdominal Wall, Open Approach (ICD-10-PCS; 2021-04-20)
PROC: BF001ZZ Plain Radiography of Bile Ducts using Low Osmolar Contrast (ICD-10-PCS; 2021-04-20)
DX: K80.00 Calculus of gallbladder with acute cholecystitis without obstruction (principal); N39.0 Urinary tract infection, site not specified; F05 Delirium due to known physiological condition; K42.9 Umbilical hernia without obstruction or gangrene; K43.2 Incisional hernia without obstruction or gangrene; I10 Essential (primary) hypertension; F32.9 Major depressive disorder, single episode, unspecified; E89.2 Postprocedural hypoparathyroidism; M79.7 Fibromyalgia; G47.33 Obstructive sleep apnea (adult) (pediatric); G62.9 Polyneuropathy, unspecified; F40.240 Claustrophobia; I95.9 Hypotension, unspecified; R53.1 Weakness; B96.89 Other specified bacterial agents as the cause of diseases classified elsewhere; Z87.442 Personal history of urinary calculi; Z85.038 Personal history of other malignant neoplasm of large intestine; Z90.49 Acquired absence of other specified parts of digestive tract; Z87.440 Personal history of urinary (tract) infections; Z20.822 Contact with and (suspected) exposure to COVID-19
CPT/HCPCS: G0378; J0131; J1610; J1650; J2710; Q9967